=== PATIENT | male | born 1980 ===

== ENCOUNTER 2024-12-12 09:41 | Inpatient (IN) | payer OTHER ==
[~2024-12-12] VITALS: Ht 172.7 cm; Wt 87.2 kg
--- NOTE | 2024-12-12 10:24 | DVH ---
CHEST RADIOGRAPH Indication: sob Technique: Single frontal view of the chest was obtained COMPARISON: None FINDINGS: Lines and Tubes: None Lungs: Congestion Pleura: No effusion. No pneumothorax. Cardiomediastinal contours: Unremarkable Bones: Unremarkable IMPRESSION: Pulmonary vascular congestion
[2024-12-12] MEDS: ONDANSETRON HCL 4 MG/2 ML VIAL IV ONE (10:26)
[2024-12-12] MEDS: SODIUM CHLORIDE 0.9% 1,000 ML IV ONE (10:26)
[2024-12-12 10:29] VITALS: PULSE 122; RESP 20; O2SAT 98
[2024-12-12 10:56] LABS: Basophils # (auto) 0.1 10 ^3/uL (0-0.2); Basophils % (auto) 0.7 % (0.0-2.0); Eosinophils # (auto) 0.2 10 ^3/uL (0-0.8); Eosinophils % (auto) 1.9 % (0.0-7.0); Hematocrit 26.5 % (41.0-53.0); Hemoglobin 9.1 g/dL (13.5-17.5); Lymphocytes # (auto) 1.3 10 ^3/uL (0.4-5.4); Lymphocytes % (auto) 11.3 % (10.0-50.0); Mean Corpuscular Hemoglobin 28.5 pg (28.0-32.0); Mean Corpuscular Hgb Conc. 34.6 g/dL (32.0-36.0); Mean Corpuscular Volume 82.4 fL (80.0-100.0); Monocytes # (auto) 0.6 10 ^3/uL (0-1.3); Monocytes % (auto) 5.2 % (0.0-12.0); Neutrophils # (auto) 9.6 10 ^3/uL (1.6-8.6); Neutrophils % (auto) 80.9 % (37.0-80.0); Platelet Count (auto) 259 10^3/uL (140-450); Red Blood Cells 3.21 10^6/uL (4.5-5.90); Red Cell Distribution Width 14.2 % (11.8-14.3); White Blood Cell 11.9 10^3/uL (4.4-10.8)
[2024-12-12 11:27] LABS: COVID19 ANTIGEN SOFIA FIA NEGATIVE (NEGATIVE); Rapid Influenza A Negative (Negative); Rapid Influenza B Negative (Negative)
--- NOTE | 2024-12-12 11:50 | ED.PDOC ---
SOB-HPI HPI Comments 44 year old male presents to the ED with chief complaint of SOB. Patient reports that he has been experiencing SOB with associated cough, nausea, vomiting, sore throat, and headache for the past week. Patient denies any abdominal pain, chest pain, diarrhea, fever, chills, or dizziness. Chief Complaint: Shortness of Breath Time Seen by MD: 11:47 Primary Care Provider: none Reviewed notes: Nurses Notes, Medications, Allergies Information Source: Patient Mode of Arrival: Ambulatory Severity: Moderate Timing: Weeks Duration: Since onset Context: At Rest PE Risk Factors: None History of: None Prehospital treatment: None Modifying Factors: Nothing Associated Signs and Symptoms: Cough, Sore Throat If cough with SOB: Non-Productive Past Medical History PAST MEDICAL HISTORY: Denies Surgical History (Other): Cyst removal Family History Family History: Reviewed,noncontributory to illness Social History Smoker: Non-Smoker Alcohol: Denies ETOH Use Drugs: Marijuana Lives In: Home Constitutional: denies: chills, diaphoresis, fatigue, fever, malaise, sweats, weakness, others EENTM: reports: throat pain; denies: blurred vision, double vision, ear bleeding, ear discharge, ear drainage, ear pain, ear ringing, eye pain, eye redness, hearing loss, mouth pain, mouth swelling, nasal discharge, nose bleeding, nose congestion, nose pain, photophobia, tearing, throat swelling, voice changes, others Respiratory: reports: cough, shortness of breath; denies: hemoptysis, or thopnea, SOB at rest, SOB with excertion, stridor, wheezing, others Cardiovascular: denies: chest pain, dizzy spells, diaphoresis, Dyspnea on exertion, edema, irregular heart beat, left arm pain, lightheadedness, palpitations, PND, syncope, others Gastrointestinal: reports: nausea, vomiting; denies: abdomen distended, abdominal pain, blood streaked bowels, constipated, diarrhea, dysphagia, difficulty swallowing, hematemesis, melena, poor appetite, poor fluid intake, rectal bleeding, rectal pain, others Genitourinary: denies: burning, dysuria, flank pain, frequency, hematuria, incontinence, penile discharge, penile sore, pain, testicle pain, testicle sw elling, urgency, others Neurological: reports: headache; denies: dizziness, fainting, left sided numbness, left sided weakness, numbness, paresthesia, pre-existing deficit, right sided numbness, right sided weakness, seizure, speech problems, tingling, tremors, weakness, others Musculoskeletal: denies: back pain, gout, joint pain, joint swelling, muscle pain, muscle stiffness, neck pain, others Integumetry: denies: bruises, change in color, change in hair/nails, dryness, laceration, lesions, lumps, rash, wounds, others Allergic/Immunocompromised: denies: Difficulty Healing, Frequent Infections, Hives, Itching, others Hematologic/Lymphatic: denies: anemia, blood clots, easy bleeding, easy bruising, swollen glands, others Endocrine: denies: excessive hunger, excessive sweating, excessive thirst, excessive urination, flushing, intolerance to cold, intolerance to heat, unexplained weight gain, unexplained weight loss, others Psychiatric: denies: anxiety, bipolar disorder, depression, hopeless, panic disorder, schizophrenia, sleepless, suicidal, others All Other Systems: Reviewed and Negative Physical Exam General Appearance: No Apparent Distress, Normal HEENT: Normal ENT Inspection, PERRL/EOMI Neck: Full Range of Motion, Non-Tender, Normal, Normal Inspection Respiratory: Chest Non-Tender, Lungs Clear, No Accessory Muscle Use, No Respiratory Distress, Normal Breath Sounds Cardiovascular: No Edema, No JVD, No Murmur, No Gallop, Normal Peripheral Pulses, Regular Rate/Rhythm Breast Exam: Deferred Gastrointestinal: No Organomegaly, Non Tender, No Pulsatile Mass, Normal Bowel Sounds, Soft Genitalia: Deferred Pelvic: Deferred Rectal: Deferred Extremities: No calf tenderness, Normal capillary refill, Normal inspection, Normal range of motion, Non-tender, No pedal edema Musculoskeletal : Apperance: Normal Neurologic: Alert, stretcher helper II-XII nml as Tested, No Motor Deficits, Normal Affect, Normal Mood, No Sensory Deficits Cerebellar Function: Normal Reflexes: Normal Skin: Dry, Normal Color, Warm Lymphatic: No Adenopathy Was a procedure done? Was a procedure done?: No Differential Dx Differential Diagnosis: CHF, COPD, Myocardial infarction, Pneumonia, Respiratory Distress, Sinusitis, Pharyngitis, URI X-Ray, Labs, Meds, VS Vital Signs Date Time Temp Pulse Resp B/P (MAP) Pulse Ox O2 Delivery O2 Flow Rate FiO2 2/10/25 13:33 115 16 199/114 (142) 98 12/12/24 12:08 225/156 12/12/24 11:52 120 12/12/24 11:38 117 19 97 Room Air 12/12/24 11:38 98.0 117 19 231/152 (178) 97 98.0 12/12/24 10:50 98.4 116 16 236/156 (182) 98 98.4 12/12/24 10:29 122 20 98 Room Air* 0 21 12/12/24 10:12 106 12/12/24 10:08 20 98 Room Air* 0 21 12/12/24 10:04 98.4 122 20 246/159 (188) 98 Lab Test 12/12/24 13:59 12/12/24 11:45 12/12/24 10:31 12/12/24 10:30 Range/Units Troponin I High Sensitivity 306 *H 311 *H 309 *H </=54 ng/L Influenza Type A Antigen Negative Negative Influenza Type B Antigen Negative Negative SARS-CoV-2 Antigen (Rapid) Negative NEGATIVE White Blood Count 11.9 H 4.4-10.8 10^3/uL Red Blood Count 3.21 L 4.5-5.90 10^6/uL Hemoglobin 9.1 L 13.5-17.5 g/dL Hematocrit 26.5 L 41.0-53.0 % Mean Corpuscular Volume 82.4 80.0-100.0 fL Mean Corpuscular Hemoglobin 28.5 28.0-32.0 pg Mean Corpuscular Hemoglobin Concent 34.6 32.0-36.0 g/dL Red Cell Distribution Width 14.2 11.8-14.3 % Platelet Count 259 140-450 10^3/uL Mean Platelet Volume 8.9 6.9-10.8 fL Neutrophils (%) (Auto) 80.9 H 37.0-80.0 % Lymphocytes (%) (Auto) 11.3 10.0-50.0 % Monocytes (%) (Auto) 5.2 0.0-12.0 % Eosinophils (%) (Auto) 1.9 0.0-7.0 % Basophils (%) (Auto) 0.7 0.0-2.0 % Neutrophils # (Auto) 9.6 H 1.6-8.6 10 ^3/uL Lymphocytes # (Auto) 1.3 0.4-5.4 10 ^3/uL Monocytes # (Auto) 0.6 0-1.3 10 ^3/uL Eosinophils # (Auto) 0.2 0-0.8 10 ^3/uL Basophils # (Auto) 0.1 0-0.2 10 ^3/uL Nucleated Red Blood Cells 0.0 % Sodium Level 139 136-145 mmol/L Potassium Level 2.7 L 3.5-5.1 mmol/L Chloride Level 107 98-107 mmol/L Carbon Dioxide Level 16 L 20-31 mmol/L Anion Gap 16 H 5-15 Blood Urea Nitrogen 90 *H 9-23 mg/dL Creatinine 8.50 H 0.700-1.30 mg/dL Glomerular Filtration Rate Calc 7 >90 mL/min BUN/Creatinine Ratio 10.6 10.0-20.0 Serum Glucose 136 H 74-106 mg/dL Calcium Level 8.5 L 8.7-10.4 mg/dL Current Medications Medications (Trade) Dose Ordered Sig/Lcara Route Start Time Stop Time Status Last Admin Sodium Chloride 1,000 ml @ 1,000 mls/hr Q1H ONCE IV 12/12/24 10:15 12/12/24 11:14 DC 12/12/24 10:26 Ondansetron HCl (Zofran) 4 mg ONCE ONCE IV 12/12/24 10:15 12/12/24 10:16 DC 12/12/24 10:26 Hydralazine HCl (Apresoline Injection) 20 mg ONCE ONCE IV 12/12/24 12:00 12/12/24 12:02 DC 12/12/24 12:08 Time of 1ST Reevaluation: 12:47 Reevaluation 1ST: Unchanged Patient Education/Counseling: Diagnosis, Treatment Family Education/Counseling: No Family Present Additional Information I reviewed the following notes from patient's past medical encounters: None The following tests were ordered, and results were reviewed by me: CXR, Troponin, EKG, CBC, BMP, COVID-19, Influenza I reviewed and agreed with the following test results read by other providers: CXR Additional Information was gathered from interviewing the following independent historians: None I discussed treatment and results with medical personnel. Departure 1 Departure Time of Disposition: 16:42 (Patient presented with hypertension and symptoms concerning for hypertensive emergency. Patient is receiving iv blood pressure medications requiring intensive monitoring. Data: 1. I ordered and reviewed the result of at least 3 labs including a CBC, BMP, and Urinalysis. 2. I independently interpreted the following tests: CT Brain: Which appears benign. EKG which is Normal Sinus RhythmRisk:This patient has a high risk of morbidity due to further diagnostic testing or treatment and may suffer from an acute cardiac disorder. Workup reveals hypertensive emergency and patient should be admitted for further workup. and possible expert consultation. Patient with new onset renal failure. We will admit patient for further workup) Impression: Primary Impression: Acute renal failure Qualified Codes: N17.9 - Acute kidney failure, unspecified Additional Impressions: Shortness of breath Generalized weakness Disposition: ADMITTED INPATIENT Admit to: Med Surg Condition: Guarded Critical Care Note Critical Care Time?: Yes Critical care comment: Acute renal failure Authorized and Performed by: Roly Mroales MD Total critical care time: Approximately 39 minutes Due to a high probability of clinically significant, life threatening deterioration, the patient required my highest level of preparedness to intervene emergently and I personally spent this critical care time directly and personally managing the patient. This critical care time included obtaining a history; examining the patient; pulse oximetry; ordering and review of studies; arranging urgent treatment with development of a management plan; evaluation of patient's response to treatment; frequent reassessment; and, discussions with other providers. This critical care time was performed to assess and manage the high probability of imminent, life-threatening deterioration that could result in multi-organ failure. It was exclusive of separately billable procedures and treating other patients and teaching time. Please see my other sections and the rest of the note for further information on patient assessment and treatment. Stability Stability form required: No Heart Score Heart Score: Heart Score Response (Comments) Value History N/A 0 EKG N/A 0 Age N/A 0 Risk Factors N/A 0 Troponin N/A 0 Total 0 I personally scribed for ROLY MORALES MD ([email or web address]) on 12/12/24 at 11:50. Electronically submitted by Lee Rodriguez ([email or web address]). ROLY MORALES MD Dec 12, 2024 11:50
[2024-12-12] MEDS: hydrALAZINE HCL 20 MG/ML VL IV ONE (12:08)
[2024-12-12 12:25] LABS: Anion Gap 16 (5-15)
[2024-12-12 12:29] LABS: Calcium 8.5 mg/dL (8.7-10.4); Carbon Dioxide 16 mmol/L (20-31); Chloride 107 mmol/L (98-107); Potassium 2.7 mmol/L (3.5-5.1); Sodium 139 mmol/L (136-145)
[2024-12-12 12:30] LABS: BUN/Creatinine Ratio 10.6 (10.0-20.0)
[2024-12-12 12:31] LABS: Glucose 136 mg/dL (74-106)
[2024-12-12 12:32] LABS: Blood Urea Nitrogen 90 mg/dL (9-23)
[2024-12-12] MEDS ORDERED: NITROGLYCERIN 0.4 MG SL TAB SL PRN (19:15)
[2024-12-12] MEDS ORDERED: MORPHINE SULFATE INJ 2 MG/ml SYRG IV PRN (19:15)
[2024-12-12] MEDS ORDERED: ONDANSETRON HCL 4 MG/2 ML VIAL IV PRN (19:45)
[2024-12-12] MEDS ORDERED: ACETAMINOPHEN 325 MG TAB PO PRN (19:45)
--- NOTE | 2024-12-12 19:57 | DVH ---
CT STROKE CTH INDICATION: hyprtension, headache COMPARISON: None TECHNIQUE: CT of the head without intravenous contrast. RADIATION DOSE: CTDIvol: mGy, DLP: mGy*cm FINDINGS: There is no evidence of intracranial hemorrhage, acute infarct, extra-axial collection, mass effect, midline shift, herniation or hydrocephalus. There is old right PICA territory cerebellar infarct as w ell as small old infarcts in bilateral thalamus larger on the right side and left posterior and left frontal periventricular white matter. The ventricles, sulci and cisterns are normal. Visualized paranasal sinuses and mastoid air cells are clear. The surrounding soft tissues and osseo us structures are unremarkable. IMPRESSION: No acute intracranial abnormality identified. 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
[2024-12-12 20:00] VITALS: O2SAT 94
[2024-12-12] MEDS: LABETALOL HCL 20 MG/4 ML VL IV ONE (20:19)
[2024-12-12] MEDS: POTASSIUM CHL 20 Meq TABLET PO ONE (20:19)
--- NOTE | 2024-12-12 20:41 | DVH ---
EXAM: US KIDNEY INDICATION: renal failure TECHNIQUE: Multiple real-time sonographic images of the kidneys and bladder were obtained. COMPARISON: None Findings: Right kidney measures 10.0 cm with normal contours, increased echotexture, and normal cortical thickn ess. No evidence of hydronephrosis, calculi, cystic or solid lesions. Left kidney measures 9.8 cm with normal contours, increasead echotexture, and normal cortical thickne ss. 0.8 x 1.1 x 0.8 cm anechoic lesion. No evidence of hydronephrosis, calculi, or solid lesions. Urinary bladder is contracted. Bilateral pleural effusions. Impression: 1. Increased echogenicity of bilateral kidneys. Correlate for medical renal disease. 2. Left renal cyst. 3. Urinary bladder is contracted. 4. Bilateral pleural effusions.
[2024-12-12 21:20] LABS: Triglycerides 176 mg/dL (< 150)
[2024-12-12 21:21] LABS: LDL Cholesterol 117 mg/dL (< 100)
[2024-12-12 21:22] LABS: Cholesterol 193 mg/dL (< 200); HDL Cholesterol 51 mg/dL (40-59)
[2024-12-12] MEDS ORDERED: FUROSEMIDE 100 MG/10ML VIAL IV ONE (21:30)
[2024-12-12] MEDS: ATORVASTATIN 20 MG TAB PO SCH (21:39)
[2024-12-12] MEDS: METOPROLOL TARTRATE 25 MG TAB PO SCH (21:40)
[2024-12-12] MEDS: ENOXAPARIN SOD 100 MG/1 ML SYRINGE SC ONE (21:40)
--- NOTE | 2024-12-12 22:19 | DVHHP2 ---
History of Present Illness Reason for Visit: Shortness for breath History of Present Illness 44-year-old male presents for evaluation of shortness for breath. Patient presents with worsening shortness for breath has been ongoing for the past two weeks. He states symptoms become worse when laying flat. He also reports mild chest tightness. No cough or fever. Patient reports having history of hypertension yet he has been off his medications for the past three years. Denies any other acute complaints at the moment. Past Medical History Denies Past Surgical History Cyst removal Family History Noncontributory Smoke: No ALCOHOL: none Drugs: None Lives: with Family Review of Systems Review of Systems Review of systems are currently negative otherwise addressed in HPI. Allergies: Coded Allergies: NO KNOWN ALLERGIES (Unverified , 12/12/24) Medications Current Medications Medications Dose Ordered Sig/Clara Route Start Time Stop Time Status Last Admin Dose Admin Nitroglycerin 0.4 mg Q5MINP PRN SL 12/12/24 19:15 Morphine Sulfate 2 mg Q30M PRN IV 12/12/24 19:15 Aspirin 162 mg DAILY PO 12/13/24 10:00 Atorvastatin Calcium 10 mg HS PO 12/12/24 22:00 12/12/24 21:39 10 MG Metoprolol Tartrate 25 mg BID PO 12/12/24 22:00 12/12/24 21:40 25 MG Amlodipine Besylate 10 mg DAILY PO 12/13/24 10:00 Temazepam 15 mg QHSP PRN PO 12/12/24 19:45 Ondansetron HCl 4 mg Q4HP PRN IV 12/12/24 19:45 Acetaminophen 650 mg Q6HP PRN PO 12/12/24 19:45 Furosemide 20 mg BIDD IV 12/13/24 06:00 Exam Vital Signs Vital Signs Date Time Temp Pulse Resp B/P (MAP) Pulse Ox O2 Delivery O2 Flow Rate FiO2 12/12/24 21:40 107 159/110 12/12/24 18:00 98.2 15 97 98.2 12/12/24 11:38 Room Air 12/12/24 10:29 0 21 Exam Gen: 44-year-old male in mild distress Skin: Warm, dry, normal color and texture, no rash. HEENT: Normocephalic atraumatic, mucous membranes moist and pink. Neck: Cervical and supraclavicular nodes normal without enlargement, trachea is midline, thyroid gland is normal without masses. Pulmonary: Clear to auscultation and percussion bilaterally. Cardiac: Regular rate and rhythm. No murmur Abdomen: Soft, nontender, nondistended, bowel sounds present all 4 quadrants, no guarding, no rigidity, no organomegaly. Extremities: No cyanosis, clubbing, no edema Neuro: Cranial nerves II through XII grossly intact, normal affect and speech, no focal motor deficits. Labs/Xrays ORDERING PHYSICIAN: ROLY CRAIG MD PROCEDURE(s): CXRP - CHEST PORTABLE REASON: sob ORDER NUMBER(s): [id number], ACCESSION NUMBER(s): [id number] CHEST RADIOGRAPH Indication: sob Technique: Single frontal view of the chest was obtained COMPARISON: None FINDINGS: Lines and Tubes: None Lungs: Congestion Pleura: No effusion. No pneumothorax. Cardiomediastinal contours: Unremarkable Bones: Unremarkable IMPRESSION: Pulmonary vascular congestion RING PHYSICIAN: FABIO BRANDT PROCEDURE(s): KIDUS - KIDNEY REASON: renal failure ORDER NUMBER(s): [id number], ACCESSION NUMBER(s): [id number] EXAM: US KIDNEY INDICATION: renal failure TECHNIQUE: Multiple real-time sonographic images of the kidneys and bladder were obtained. COMPARISON: None Findings: Right kidney measures 10.0 cm with normal contours, increased echotexture, and normal cortical thickness. No evidence of hydronephrosis, calculi, cystic or solid lesions. Left kidney measures 9.8 cm with normal contours, increasead echotexture, and normal cortical thickness. 0.8 x 1.1 x 0.8 cm anechoic lesion. No evidence of hydronephrosis, calculi, or solid lesions. Urinary bladder is contracted. Bilateral pleural effusions. Impression: 1. Increased echogenicity of bilateral kidneys. Correlate for medical renal disease. 2. Left renal cyst. 3. Urinary bladder is contracted. 4. Bilateral pleural effusions. ATED BY: FERNANDA ZUÑIGA DO ORDERING PHYSICIAN: FABIO BRANDT PROCEDURE(s): CTH - STROKE CTH REASON: hyprtension, headache ORDER NUMBER(s): [id number], ACCESSION NUMBER(s): [id number] CT STROKE CTH INDICATION: hyprtension, headache COMPARISON: None TECHNIQUE: CT of the head without intravenous contrast. RADIATION DOSE: CTDIvol: mGy, DLP: mGy*cm FINDINGS: There is no evidence of intracranial hemorrhage, acute infarct, extra-axial collection, mass effect, midline shift, herniation or hydrocephalus. There is old right PICA territory cerebellar infarct as well as small old infarcts in bilateral thalamus larger on the right side and left posterior and left frontal periventricular white matter. The ventricles, sulci and cisterns are normal. Visualized paranasal sinuses and mastoid air cells are clear. The surrounding soft tissues and osseous structures are unremarkable. IMPRESSION: No acute intracranial abnormality identified. 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 Labs Test 12/12/24 21:54 12/12/24 20:37 12/12/24 13:59 12/12/24 10:31 Range/Units D-Dimer, Quantitative 0.92 H 0.0-0.49 mg/L FEU Troponin I High Sensitivity 306 *H </=54 ng/L Influenza Type A Antigen Negative Negative Influenza Type B Antigen Negative Negative SARS-CoV-2 Antigen (Rapid) Negative NEGATIVE Test 12/12/24 10:30 Range/Units White Blood Count 11.9 H 4.4-10.8 10^3/uL Red Blood Count 3.21 L 4.5-5.90 10^6/uL Hemoglobin 9.1 L 13.5-17.5 g/dL Hematocrit 26.5 L 41.0-53.0 % Mean Corpuscular Volume 82.4 80.0-100.0 fL Mean Corpuscular Hemoglobin 28.5 28.0-32.0 pg Mean Corpuscular Hemoglobin Concent 34.6 32.0-36.0 g/dL Red Cell Distribution Width 14.2 11.8-14.3 % Platelet Count 259 140-450 10^3/uL Mean Platelet Volume 8.9 6.9-10.8 fL Neutrophils (%) (Auto) 80.9 H 37.0-80.0 % Lymphocytes (%) (Auto) 11.3 10.0-50.0 % Monocytes (%) (Auto) 5.2 0.0-12.0 % Eosinophils (%) (Auto) 1.9 0.0-7.0 % Basophils (%) (Auto) 0.7 0.0-2.0 % Neutrophils # (Auto) 9.6 H 1.6-8.6 10 ^3/uL Lymphocytes # (Auto) 1.3 0.4-5.4 10 ^3/uL Monocytes # (Auto) 0.6 0-1.3 10 ^3/uL Eosinophils # (Auto) 0.2 0-0.8 10 ^3/uL Basophils # (Auto) 0.1 0-0.2 10 ^3/uL Nucleated Red Blood Cells 0.0 % Sodium Level 139 136-145 mmol/L Potassium Level 2.7 L 3.5-5.1 mmol/L Chloride Level 107 98-107 mmol/L Carbon Dioxide Level 16 L 20-31 mmol/L Anion Gap 16 H 5-15 Blood Urea Nitrogen 90 *H 9-23 mg/dL Creatinine 8.50 H 0.700-1.30 mg/dL Glomerular Filtration Rate Calc 7 >90 mL/min BUN/Creatinine Ratio 10.6 10.0-20.0 Serum Glucose 136 H 74-106 mg/dL Hemoglobin A1c 4.9 <5.7 % A1C Calcium Level 8.5 L 8.7-10.4 mg/dL B-Type Natriuretic Peptide 1132.68 0-100 pg/mL Triglycerides Level 176 H < 150 mg/dL Cholesterol Level 193 < 200 mg/dL LDL Cholesterol 117 H < 100 mg/dL HDL Cholesterol 51 40-59 mg/dL Thyroid Stimulating Hormone (TSH) 0.37 L 0.55-4.78 uIU/mL Assessment/Plan Assessment/Plan Assessment Hypertensive urgency Acute congestive heart failure Elevated troponin rule out NSTEMI versus demand ischemia 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 Plan discussed with: Patient My Orders Orders - FABIO BRANDT Procedure Category Date Status Time Admit ADMIT 12/12/24 Transmitted 19:10 Nitroglycerin PHA 12/12/24 In Process Sublingual (Ntrostat 19:15 Morphine Sulfate PHA 12/12/24 In Process Injection 19:15 Stat Ekg For Chest VICENTE 12/12/24 In Process Pain 19:10 Notify Of Changes VICENTE 12/12/24 In Process From Base 19:10 Package Winder For VICENTE 12/12/24 In Process 24 Hours 19:10 Emergency Dysrhythmia VICENTE 12/12/24 In Process Protocol 19:10 Rhythm Strips Once VICENTE 12/12/24 In Process Every Shift 19:10 Oxygen By Nasal RT 12/12/24 Transmitted Cannula 19:[address] 12/12/24 Resulted 19:10 Kidney US 12/12/24 Resulted 19:37 * Cardiology Consult CONS 12/12/24 Transmitted 19:37 Aspirin Tablet PHA 12/13/24 In Process 10:00 Atorvastatin (Lipitor) PHA 12/12/24 In Process 22:00 Metoprolol Tartrate PHA 12/12/24 In Process Tablet (Lopressor Ta 22:00 Amlodipine Tablet PHA 12/13/24 In Process (Norvasc Tablet) 10:00 Temazepam (Restoril) PHA 12/12/24 In Process 19:45 Ondansetron Hcl PHA 12/12/24 In Process (Zofran) 19:45 Complete Blood Count LAB 12/13/24 Verified 04:00 Comprehensive LAB 12/13/24 Verified Metabolic Panel 04:00 Cardiac DIET 12/13/24 Transmitted Diet-2gna,Lofat,Lochol Breakfast Echo 2d Mode Cardiac US 12/12/24 Logged DOP 19:37 Condition: Fair VICENTE 12/12/24 In Process 19:37 Acetaminophen Tablet PHA 12/12/24 In Process (Tylenol Tablet) 19:45 Bedrest With Bathroom VICENTE 12/12/24 In Process Privileg 19:37 Thyroid Panel LAB 12/12/24 In Process 21:24 Furosemide Injection PHA 12/13/24 In Process (Lasix Injection) 06:00 Date of Service: Dec 12, 2024 Billing Provider: FABIO BRANDT Common Visit Codes: [id number] INP/OBS CARE (HIGH) FABIO BRANDT Dec 12, 2024 22:19
[2024-12-12] MEDS: FUROSEMIDE 40 MG/4 ML VIAL IV ONE (23:51)
--- NOTE | 2024-12-13 01:36 | ECG ---
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
[2024-12-13] MEDS: LABETALOL HCL 20 MG/4 ML VL IV ONE (02:13)
[2024-12-13] MEDS: hydrALAZINE HCL 20 MG/ML VL IV PRN (05:03)
[2024-12-13 05:55] LABS: Basophils # (auto) 0.1 10 ^3/uL (0-0.2); Lymphocytes # (auto) 1.2 10 ^3/uL (0.4-5.4); Mean Corpuscular Hemoglobin 28.3 pg (28.0-32.0); Neutrophils # (auto) 9.9 10 ^3/uL (1.6-8.6); Red Blood Cells 2.95 10^6/uL (4.5-5.90)
[2024-12-13 05:57] LABS: Basophils % (auto) 0.8 % (0.0-2.0); Eosinophils # (auto) 0.2 10 ^3/uL (0-0.8); Eosinophils % (auto) 1.3 % (0.0-7.0); Hematocrit 24.3 % (41.0-53.0); Hemoglobin 8.3 g/dL (13.5-17.5); Lymphocytes % (auto) 9.9 % (10.0-50.0); Mean Corpuscular Hgb Conc. 34.4 g/dL (32.0-36.0); Mean Corpuscular Volume 82.3 fL (80.0-100.0); Monocytes # (auto) 0.7 10 ^3/uL (0-1.3); Monocytes % (auto) 5.6 % (0.0-12.0); Neutrophils % (auto) 82.4 % (37.0-80.0); Platelet Count (auto) 238 10^3/uL (140-450); Red Cell Distribution Width 14.5 % (11.8-14.3)
[2024-12-13 06:09] LABS: Alanine Aminotransferase 35 U/L (7-40); Albumin 3.8 g/dL (3.2-4.8); Alkaline Phosphatase 67 U/L (46-116); Anion Gap 16 (5-15); Aspartate Aminotransferase 31 U/L (13-40); BUN/Creatinine Ratio 10.7 (10.0-20.0); Calcium 9.4 mg/dL (8.7-10.4); Glucose 104 mg/dL (74-106); Sodium 138 mmol/L (136-145)
[2024-12-13 06:10] LABS: Bilirubin, Total 0.3 mg/dL (0.2-1.0); Total Protein 6.1 g/dL (5.7-8.2)
[2024-12-13] MEDS: FUROSEMIDE 20 MG/2 ML VIAL IV SCH (06:10)
[2024-12-13 06:50] LABS: Carbon Dioxide 15 mmol/L (20-31); Chloride 107 mmol/L (98-107); Potassium 3.2 mmol/L (3.5-5.1)
[2024-12-13 06:52] LABS: Blood Urea Nitrogen 87 mg/dL (9-23)
[2024-12-13] MEDS ORDERED: dilTIAZem 125mg/125ml BAG KIT 125 ML IV SCH (08:45)
[2024-12-13] MEDS ORDERED: CARVEDILOL 3.125 MG TAB PO ONE (09:15)
--- NOTE | 2024-12-13 09:25 | DVHPNRES ---
Progress Note Date Seen: Dec 13, 2024 Resident Creating Document: NORMAN CHAO RESIDENT Medical Necessity Reason Pt with a Central, PICC or Fol: No Subjective Review of Systems This is a 44-year-old male patient with PMH of hypertension on no medications, history of cocaine use, presented to the ER with a chief complaint of shortness of breaths for the past 2-3 weeks, associated with orthopnea, PND. Also associated with dry cough for the past 3 weeks. Denies chest pain/palpitations. He smokes marijuana daily, this cocaine for the past 5 years quit 2023, drinks occasionally. Has not seen a physician in years, has no PCP. EKG completed shows LVH criteria. Sinus tachycardia. Patient seen and examined at the bedside. Objective vital signs Vital Sign Date Time Temp Pulse Resp B/P (MAP) Pulse Ox O2 Delivery O2 Flow Rate FiO2 12/13/24 09:10 114 182/116 12/13/24 07:29 20 98 12/12/24 20:00 Room Air* 0 21 12/12/24 18:00 98.2 98.2 Total Intake and Output 12/12/24 12/12/24 12/13/24 15:00 23:00 07:00 Intake Total 1000 ml Balance 1000 ml medications Current Medications Medications Dose Ordered Sig/Clara Route Start Time Stop Time Status Last Admin Dose Admin Nitroglycerin 0.4 mg Q5MINP PRN SL 12/12/24 19:15 Morphine Sulfate 2 mg Q30M PRN IV 12/12/24 19:15 Aspirin 162 mg DAILY PO 12/13/24 10:00 Atorvastatin Calcium 10 mg HS PO 12/12/24 22:00 12/12/24 21:39 10 MG Temazepam 15 mg QHSP PRN PO 12/12/24 19:45 Ondansetron HCl 4 mg Q4HP PRN IV 12/12/24 19:45 Acetaminophen 650 mg Q6HP PRN PO 12/12/24 19:45 Nicardipine HCl 250 ml @ 50 mls/hr Q5H IV 12/13/24 09:00 12/13/24 09:10 50 MLS/HR Examination Patient lying in bed in the ER, no acute distress General: Well-built, afebrile, palor, mucosae are moist Cardiovascular: Regular S1 and S2. No murmurs, gallops or rubs. No JVD elevation. No pedal edema Respiratory: Bilateral crackles heard on auscultation. On room air. Abdomen: Soft, nontender, nondistended, normoactive bowel sounds, no rebound tenderness, no organomegaly, no masses Genitourinary: Deferred MSK/skin: Mobilizes 4 limbs. Skin is dry and warm Neurological: No motor, no sensitive deficits, normal speech. Pupils are isocoric and reactive. Psych/Mental Status: A/Ox3 laboratory and microbiology Laboratory Tests 12/13/24 05:25 Test 12/13/24 05:25 Range/Units Serum Glucose 104 74-106 mg/dL Labs and/or images reviewed: Labs reviewed by me, Image(s) reviewed by me Problem List/Assessment/Plan Problem List/Assessment/Plan Sirs secondary to Hypertensive emergency Systolic congestive heart failure exacerbation - newly diagnosed NSTEMI, likely type 2 Severe MR History of cocaine use TTE performed, EF 50% with severe MR. Coordinate with RONEN BNP [address] Started nicardipine drip, target SBP between 140 and 150 Nephrology started labetalol 400 mg p.o. q.12 Continue aspirin daily Furosemide 40 mg IV b.i.d. Acute renal failure Secondary hyperparathyroidism Left Renal cyst Renal ultrasound completed, shows Increased echogenicity of bilateral kidneys. Correlate for medical renal disease. Nephrology on board Hyperlipidemia Continue atorvastatin 40 mg daily Anemia, likely microcytic+ Pending stool occult Euthyroid sick syndrome Monitor Hypokalemia Replenish Vitamin-D deficiency Replenish Plan discussed with patient in which all questions have been answered Case discussed With Dr. Vazquez Plan discussed with: Patient My Orders My Orders Orders - NORMAN CHAO RESIDENT Procedure Category Date Status Time *Dr. [facility] CONS 12/13/24 Transmitted -[place] 07:55 Urinalysis LAB 12/13/24 Logged 08:06 Vitamin B12 LAB 12/13/24 In Process 08:06 Vitamin D, 25-Hydroxy LAB 12/13/24 In Process 08:06 Drug Screen LAB 12/13/24 Logged 08:06 Stool Occult Blood LAB 12/13/24 Logged 08:06 Urine LAB 12/13/24 Logged Protein/Creatinine Urine Sodium LAB 12/13/24 Logged 08:11 Parathyroid Hormone LAB 12/13/24 In Process Intact 08:11 Nitroglycerin Drip PHA 12/13/24 Transmitted [place] 09:30 Date of Service: Dec 13, 2024 Billing Provider: ITALO POPE MD Common Visit Codes: [id number] INP/OBS CARE(HIGH) NORMAN CHAO RESIDENT Dec 13, 2024 09:24 ITALO POPE MD Dec 18, 2024 23:59
[2024-12-13] MEDS ORDERED: amLODIPine BESYLATE 5 MG TAB PO SCH (10:00)
[2024-12-13] MEDS: ASPirin 81 mg TAB PO SCH (10:11)
[2024-12-13] MEDS: POTASSIUM CHL 20MEQ/100ML 100 ML IV ONE (10:11)
[2024-12-13] MEDS: NITROGLYCERIN 50MG/250ML 250 ML IV SCH (10:12)
--- NOTE | 2024-12-13 11:28 | DVHINCON2 ---
Date of service: Dec 13, [address] Rodriguez Reason for Consultation Acute kidney injury History of Present Illness Patient is a 44-year-old male with past medical history of hypertension for the past five years, patient noncompliant with medication presented with worsening shortness of breath and chest pain. On admission patient found to have elevated BUN and creatinine nephrology is consulted for acute kidney injury Past Medical History Hypertension is on no medication Family history father with diabetes, mother from complication of diabetes and kidney failure Past Surgical History Patient denies Allergies: Coded Allergies: NO KNOWN ALLERGIES (Unverified , 12/12/24) Current Medications Current Medications Medications (Trade) Dose Ordered Sig/Clara Route PRN Reason Start Time Stop Time Status Last Admin Nitroglycerin (Ntrostat Sublingual) 0.4 mg Q5MINP PRN SL FOR CHEST PAIN 12/12/24 19:15 Morphine Sulfate 2 mg Q30M PRN IV FOR CHEST PAIN 12/12/24 19:15 Aspirin 162 mg DAILY PO 12/13/24 10:00 12/13/24 10:11 Atorvastatin Calcium (Lipitor) 10 mg HS PO 12/12/24 22:00 12/12/24 21:39 Metoprolol Tartrate (Lopressor Tablet) 25 mg BID PO 12/12/24 22:00 12/13/24 08:10 DC 12/12/24 21:40 Amlodipine Besylate (Norvasc Tablet) 10 mg DAILY PO 12/13/24 10:00 12/13/24 09:16 DC Temazepam (Restoril) 15 mg QHSP PRN PO FOR INSOMNIA 12/12/24 19:45 Ondansetron HCl (Zofran) 4 mg Q4HP PRN IV NAUSEA / VOMITING 12/12/24 19:45 Acetaminophen (Tylenol Tablet) 650 mg Q6HP PRN PO PAIN SCALE 1-3 OR TEMP>100.4 12/12/24 19:45 Furosemide (Lasix Injection) 20 mg BIDD IV 12/13/24 06:00 12/13/24 08:11 DC 12/13/24 06:10 Hydralazine HCl (Apresoline Injection) 10 mg Q6HP PRN IV SBP>150 12/13/24 04:30 12/13/24 08:10 DC 12/13/24 05:03 Diltiazem HCl 125 ml @ 5 mls/hr Q24H IV 12/13/24 08:45 12/13/24 08:56 DC Nicardipine HCl 250 ml @ 50 mls/hr Q5H IV 12/13/24 09:00 12/13/24 09:24 DC 12/13/24 09:10 Nitroglycerin 250 ml @ 1.5 mls/hr Q24H IV 12/13/24 09:30 12/13/24 12:19 DC 12/13/24 10:12 Potassium Chloride 100 ml @ 50 mls/hr Q2H IV 12/13/24 11:30 12/13/24 15:29 12/13/24 13:30 Nicardipine HCl 250 ml @ 50 mls/hr Q5H IV 12/13/24 14:00 12/13/24 14:15 Furosemide (Lasix Injection) 40 mg BIDD IV 12/13/24 14:00 12/13/24 14:15 Review of Systems All 12 item review of systems reviewed with the patient nonsignificant except what is mentioned in the history of present illness H&P Exam Vital Signs/I&O Vital Sign Date Time Temp Pulse Resp B/P (MAP) Pulse Ox O2 Delivery O2 Flow Rate FiO2 12/13/24 14:45 113 19 195/132 (153) 96 12/13/24 13:30 Nasal Cannula* 2 28 12/12/24 18:00 98.2 98.2 Intake and Output 12/12/24 12/13/24 19:00 07:00 Intake Total 1000 ml Balance 1000 ml Intake IV Total 1000 ml Physical Exam Patient is awake alert appeared in no acute distress Lungs clear to auscultation bilaterally Cardiac exam regular rate and rhythm GI soft nontender is normal Extremities no clubbing cyanosis or edema Neuro nonfocal Labs/Diagnostic Data Labs/Diagnostic Data Laboratory Tests Test 12/13/24 14:26 12/13/24 12:00 12/13/24 10:45 12/13/24 08:49 Range/Units Sodium Level 137 136-145 mmol/L Potassium Level 3.3 L 3.5-5.1 mmol/L Chloride Level 106 98-107 mmol/L Carbon Dioxide Level 18 L 20-31 mmol/L Anion Gap 13 5-15 Blood Urea Nitrogen 91 *H 9-23 mg/dL Creatinine 8.04 H 0.700-1.30 mg/dL Glomerular Filtration Rate Calc 8 >90 mL/min BUN/Creatinine Ratio 11.3 10.0-20.0 Serum Glucose 132 H 74-106 mg/dL Uric Acid 7.7 3.7-9.2 mg/dL Calcium Level 9.2 8.7-10.4 mg/dL Magnesium Level 1.7 1.6-2.6 mg/dL Creatine Kinase 49 46-171 U/L Parathyroid Hormone (Intact) 650.2 H 18.4-80.1 pg/mL Hepatitis B Surface Antigen Negative Negative Hepatitis C Antibody Negative Negative HIV (1&2) Antibody Negative Negative Urine Color Colorless Yellow Urine Clarity Clear Clear Urine pH 5.5 5.0-9.0 Urine Specific [place] 1.008 1.001-1.035 Urine Protein 1+ H Negative Urine Ketones Negative Negative Urine Blood Trace H Negative /uL Urine Nitrite Negative Negative Urine Bilirubin Negative Negative Urine Urobilinogen Normal Negative mg/dL Urine Leukocyte Esterase Negative Negative /uL Urine RBC 1 0 - 3 /hpf Urine Microscopic WBC < 1 0-3 /HPF Urine Squamous Epithelial Cells None seen <5 /hpf Urine Bacteria None seen None Seen /hpf Urine Glucose Normal Normal mg/dL POC Glucose 109 H 70-106 mg/dl Test 12/13/24 05:25 12/12/24 21:54 12/12/24 20:37 12/12/24 13:59 Range/Units White Blood Count 12.0 H 4.4-10.8 10^3/uL Red Blood Count 2.95 L 4.5-5.90 10^6/uL Hemoglobin 8.3 L 13.5-17.5 g/dL Hematocrit 24.3 L 41.0-53.0 % Mean Corpuscular Volume 82.3 80.0-100.0 fL Mean Corpuscular Hemoglobin 28.3 28.0-32.0 pg Mean Corpuscular Hemoglobin Concent 34.4 32.0-36.0 g/dL Red Cell Distribution Width 14.5 H 11.8-14.3 % Platelet Count 238 140-450 10^3/uL Mean Platelet Volume 9.1 6.9-10.8 fL Neutrophils (%) (Auto) 82.4 H 37.0-80.0 % Lymphocytes (%) (Auto) 9.9 L 10.0-50.0 % Monocytes (%) (Auto) 5.6 0.0-12.0 % Eosinophils (%) (Auto) 1.3 0.0-7.0 % Basophils (%) (Auto) 0.8 0.0-2.0 % Neutrophils # (Auto) 9.9 H 1.6-8.6 10 ^3/uL Lymphocytes # (Auto) 1.2 0.4-5.4 10 ^3/uL Monocytes # (Auto) 0.7 0-1.3 10 ^3/uL Eosinophils # (Auto) 0.2 0-0.8 10 ^3/uL Basophils # (Auto) 0.1 0-0.2 10 ^3/uL Nucleated Red Blood Cells 0.0 % Sodium Level 138 136-145 mmol/L Potassium Level 3.2 L 3.5-5.1 mmol/L Chloride Level 107 98-107 mmol/L Carbon Dioxide Level 15 L 20-31 mmol/L Anion Gap 16 H 5-15 Blood Urea Nitrogen 87 *H 9-23 mg/dL Creatinine 8.16 H 0.700-1.30 mg/dL Glomerular Filtration Rate Calc 8 >90 mL/min BUN/Creatinine Ratio 10.7 10.0-20.0 Serum Glucose 104 74-106 mg/dL Calcium Level 9.4 8.7-10.4 mg/dL Magnesium Level 1.7 1.6-2.6 mg/dL Total Bilirubin 0.3 0.2-1.0 mg/dL Aspartate Amino Transferase (AST) 31 13-40 U/L Alanine Aminotransferase (ALT) 35 7-40 U/L Alkaline Phosphatase 67 46-116 U/L Total Protein 6.1 5.7-8.2 g/dL Albumin 3.8 3.2-4.8 g/dL Vitamin B12 Level 548 211-911 pg/mL Vitamin D 25-Hydroxy 10.6 L 30.0-100 ng/mL Parathyroid Hormone (Intact) 534.4 H 18.4-80.1 pg/mL D-Dimer, Quantitative 0.92 H 0.0-0.49 mg/L FEU Troponin I High Sensitivity 306 *H </=54 ng/L Test 12/12/24 11:45 12/12/24 10:31 12/12/24 10:30 Range/Units Troponin I High Sensitivity 311 *H 309 *H </=54 ng/L Influenza Type A Antigen Negative Negative Influenza Type B Antigen Negative Negative SARS-CoV-2 Antigen (Rapid) Negative NEGATIVE White Blood Count 11.9 H 4.4-10.8 10^3/uL Red Blood Count 3.21 L 4.5-5.90 10^6/uL Hemoglobin 9.1 L 13.5-17.5 g/dL Hematocrit 26.5 L 41.0-53.0 % Mean Corpuscular Volume 82.4 80.0-100.0 fL Mean Corpuscular Hemoglobin 28.5 28.0-32.0 pg Mean Corpuscular Hemoglobin Concent 34.6 32.0-36.0 g/dL Red Cell Distribution Width 14.2 11.8-14.3 % Platelet Count 259 140-450 10^3/uL Mean Platelet Volume 8.9 6.9-10.8 fL Neutrophils (%) (Auto) 80.9 H 37.0-80.0 % Lymphocytes (%) (Auto) 11.3 10.0-50.0 % Monocytes (%) (Auto) 5.2 0.0-12.0 % Eosinophils (%) (Auto) 1.9 0.0-7.0 % Basophils (%) (Auto) 0.7 0.0-2.0 % Neutrophils # (Auto) 9.6 H 1.6-8.6 10 ^3/uL Lymphocytes # (Auto) 1.3 0.4-5.4 10 ^3/uL Monocytes # (Auto) 0.6 0-1.3 10 ^3/uL Eosinophils # (Auto) 0.2 0-0.8 10 ^3/uL Basophils # (Auto) 0.1 0-0.2 10 ^3/uL Nucleated Red Blood Cells 0.0 % Sodium Level 139 136-145 mmol/L Potassium Level 2.7 L 3.5-5.1 mmol/L Chloride Level 107 98-107 mmol/L Carbon Dioxide Level 16 L 20-31 mmol/L Anion Gap 16 H 5-15 Blood Urea Nitrogen 90 *H 9-23 mg/dL Creatinine 8.50 H 0.700-1.30 mg/dL Glomerular Filtration Rate Calc 7 >90 mL/min BUN/Creatinine Ratio 10.6 10.0-20.0 Serum Glucose 136 H 74-106 mg/dL Hemoglobin A1c 4.9 <5.7 % A1C Calcium Level 8.5 L 8.7-10.4 mg/dL B-Type Natriuretic Peptide 1132.68 0-100 pg/mL Triglycerides Level 176 H < 150 mg/dL Cholesterol Level 193 < 200 mg/dL LDL Cholesterol 117 H < 100 mg/dL HDL Cholesterol 51 40-59 mg/dL Thyroid Stimulating Hormone (TSH) 0.37 L 0.55-4.78 uIU/mL Assessment Acute kidney injury superimposed Chronic Kidney Disease secondary hemodynamic mediated Hypertensive urgency Hypokalemia NSTEMI Congestive heart failure exacerbation Anemia of chronic kidney disease Recommendations Closely monitor fluid and electrolytes Avoid nephrotoxic medications Strict I&Os Check urinary electrolytes urine analysis and urine protein excretion Kidney ultrasound reported bilateral echogenic kidney consistent with chronic kidney disease IV nicardipine for blood pressure control Avoid hypotension Check renin and aldosterone rule out hyperaldosteronism Goal systolic blood pressure between 140 and 150 mmHg Check serology and C3 and C4 Check hep B hep C and HIV Once blood pressure is under control patient would benefit from kidney biopsy Cardiology consult Renal diet We will continue to follow Patient seen and examined by myself in the ER bed 10. I discussed my plan of care with the patient, his father and the primary nurse at the bedside Thank Dr. Rodriguez for the consult, will follow up Plan discussed with: Patient, Other NICHELLE SPARKS MD Dec 13, 2024 11:28
[2024-12-13 11:38] LABS: Urine Bacteria None Seen /hpf (None Seen)
--- NOTE | 2024-12-13 12:13 | DVHSR ---
APPROVED REPORT EXAM: Two-dimensional and M-mode echocardiogram with Doppler and color Doppler. Blood Pressure: 178/111 mmHg INDICATION ef RISK FACTORS Height: 5'8, Weight: 154 DIMENSIONS LVDd5.7 (3.8-5.7cm)LA (2D)5.4 (1.9-4.0cm)Aortic Root3.5 (2.0-3.7cm) LVDs4.5 (2.5-4.0cm)LA (MM) (1.9-4.0cm)Aortic Cusp Exc1.9 (1.5-2.0cm) EF (%) 55.0 (55-70%)Rt. Atrium3.7 (1.9-4.0cm)Asc. Aorta3.7 cm IVSd0.9 (0.7-1.1cm)RV (D)4.2 (1.8-2.4cm) PWd1.3 (0.7-1.1cm) Mitral Valve MitralMitral Stenosis E wavem/sMV Mean GR.6mmHg A wavem/sMV Peak GR.162mmHg E/A ratio0.02D MVAcm2 Aortic Valve Aortic ValveAortic Stenosis V11.10m/Rd Mean GR.5mmHg V21.37m/Rd Peak GR.7mmHg LVOT Diameter2.2 (1.8-2.4cm)Doppler AVA3.05cm2 Pulmonic Valve V20.96m/s Tricuspid Valve TR Velocity3.73m/s [id number] Conclusion lvef 50% by visual estimate severe mitral regurg is noted eccentric MR towards posterior leaflet tip posterior leaflet thickened? proplapse? correlate with RONEN left atrium enlarged
[2024-12-13 12:21] LABS: Urine Blood TRACE /uL (Negative); Urine Clarity Clear (Clear); Urine Color Colorless (Yellow); Urine Protein, UAD 1+ (Negative); Urine Specific Gravity 1.008 (1.001-1.035); Urine Squamous Epithelial Cell None Seen /hpf (<5); Urine Urobilinogen Normal (Negative); Urine WBC < 1 /HPF (0-3); Urine pH 5.5 (5.0-9.0)
[2024-12-13 12:31] LABS: Anion Gap 13 (5-15); Chloride 106 mmol/L (98-107); Sodium 137 mmol/L (136-145)
[2024-12-13 12:32] LABS: Calcium 9.2 mg/dL (8.7-10.4)
[2024-12-13 12:36] LABS: Uric Acid 7.7 mg/dL (3.7-9.2)
[2024-12-13 12:37] LABS: BUN/Creatinine Ratio 11.3 (10.0-20.0); Magnesium 1.7 mg/dL (1.6-2.6)
[2024-12-13 12:39] LABS: Creatine Kinase IFCC 49 U/L (46-171)
[2024-12-13 13:12] LABS: Carbon Dioxide 18 mmol/L (20-31); Glucose 132 mg/dL (74-106); Potassium 3.3 mmol/L (3.5-5.1)
[2024-12-13 13:16] LABS: Blood Urea Nitrogen 91 mg/dL (9-23)
[2024-12-13 13:30] VITALS: PULSE 114; RESP 18; O2SAT 96
[2024-12-13] MEDS: POTASSIUM CHL 20MEQ/100ML 100 ML IV SCH (13:30)
[2024-12-13 13:32] LABS: Hepatitis B Surface Antigen Negative (Negative); Hepatitis C Antibody Negative (Negative)
[2024-12-13] MEDS: FUROSEMIDE 40 MG/4 ML VIAL IV SCH (14:15)
--- NOTE | 2024-12-13 15:38 | DVHINCON2 ---
CAYDEN ALVAREZ [facility] 12/13/24 1538: Date Seen: Dec 13, 2024 Referring Physician AMBROSE Wilson Reason for Consultation CHF History of Present Illness This is a 44-year-old male patient who presents to the emergency room with chief complaint of shortness of breath for approximately three weeks. He comes to the emergency room for further evaluation. Upon emergency room arrival he was noted to have a blood pressure reaching as high as 246/159. Cardiology has been consulted at this time for congestive heart failure. Initial twelve lead electrocardiogram reveals sinus tachycardia with left ventricular hypertrophy. Initial BNP level of 1132.68pg/mL. Initial troponin level of 309ng/L with flat trend thereafter. Significant past medical history includes hypertension, previous cocaine abuse, and marijuana use. The patient reports he stopped taking all of his antihypertensive medications after losing weight. He states he thought he did not need medication anymore. Past Medical History Past medical history reviewed. No other significant than mentioned above. Past Surgical History Cyst removal on back Family History Family history reviewed. Social History Patient admits to previous cocaine use, quit approximately 14 months ago Patient admits to marijuana use Patient denies any alcohol use Patient denies any tobacco use Allergies: Coded Allergies: NO KNOWN ALLERGIES (Unverified , 12/12/24) Home Meds Denies taking any prescribed medications Current Medications Current Medications Medications (Trade) Dose Ordered Sig/Clara Route PRN Reason Start Time Stop Time Status Last Admin Nitroglycerin (Ntrostat Sublingual) 0.4 mg Q5MINP PRN SL FOR CHEST PAIN 12/12/24 19:15 Morphine Sulfate 2 mg Q30M PRN IV FOR CHEST PAIN 12/12/24 19:15 Aspirin 162 mg DAILY PO 12/13/24 10:00 12/13/24 10:11 Atorvastatin Calcium (Lipitor) 10 mg HS PO 12/12/24 22:00 12/12/24 21:39 Metoprolol Tartrate (Lopressor Tablet) 25 mg BID PO 12/12/24 22:00 12/13/24 08:10 DC 12/12/24 21:40 Amlodipine Besylate (Norvasc Tablet) 10 mg DAILY PO 12/13/24 10:00 12/13/24 09:16 DC Temazepam (Restoril) 15 mg QHSP PRN PO FOR INSOMNIA 12/12/24 19:45 Ondansetron HCl (Zofran) 4 mg Q4HP PRN IV NAUSEA / VOMITING 12/12/24 19:45 Acetaminophen (Tylenol Tablet) 650 mg Q6HP PRN PO PAIN SCALE 1-3 OR TEMP>100.4 12/12/24 19:45 Furosemide (Lasix Injection) 20 mg BIDD IV 12/13/24 06:00 12/13/24 08:11 DC 12/13/24 06:10 Hydralazine HCl (Apresoline Injection) 10 mg Q6HP PRN IV SBP>150 12/13/24 04:30 12/13/24 08:10 DC 12/13/24 05:03 Diltiazem HCl 125 ml @ 5 mls/hr Q24H IV 12/13/24 08:45 12/13/24 08:56 DC Nicardipine HCl 250 ml @ 50 mls/hr Q5H IV 12/13/24 09:00 12/13/24 09:24 DC 12/13/24 09:10 Nitroglycerin 250 ml @ 1.5 mls/hr Q24H IV 12/13/24 09:30 12/13/24 12:19 DC 12/13/24 10:12 Potassium Chloride 100 ml @ 50 mls/hr Q2H IV 12/13/24 11:30 12/13/24 15:29 DC 12/13/24 13:30 Nicardipine HCl 250 ml @ 50 mls/hr Q5H IV 12/13/24 14:00 12/13/24 14:15 Furosemide (Lasix Injection) 40 mg BIDD IV 12/13/24 14:00 12/13/24 14:15 Review of Systems Constitutional: No symptom reported Ears, Nose, & Throat: No symptom reported Eyes: No symptom reported Neurological: No symptoms reported Pulmonary/Respiratory: Shortness of breath Cardiovascular: No symptom reported Gastrointestinal: No symptom reported Genitourinary: No symptom reported Musculoskeletal: No symptom reported Skin: No symptom reported Psychiatric: No symptom reported Endocrine: No symptom reported Hematologic/Lymphatic: No symptom reported Vital Signs Vital Signs Date Time Temp Pulse Resp B/P (MAP) Pulse Ox O2 Delivery O2 Flow Rate FiO2 12/13/24 14:45 113 19 195/132 (153) 96 12/13/24 13:30 Nasal Cannula* 2 28 12/12/24 18:00 98.2 98.2 Physical Exam General Appearance: Cooperative. Well-developed. Well-nourished. No acute distress. Pulmonary/Respiratory: Coarse throughout Cardiovascular/Chest: Regular rate and rhythm. Peripheral Pulses: 2+ Radial (R). 2+ Radial (L). 2+ Pedal (R). 2+ Pedal (L) Abdominal Exam: Normal bowel sounds. Ankle Exam: Negative ankle edema Lower extremities: Negative lower extremity edema Neuro/Mental Status: A/OX4, coherent. Thoughts/Psych: Normal thought pattern. Appropriate mood and affect. Good judgment and insight. Appearance: No acute distress. Skin Exam: Normal inspection. Normal color. Warm and dry. Labs/Diagnostic Data Labs Test 12/13/24 14:26 12/13/24 12:00 12/13/24 10:45 12/13/24 08:49 Range/Units Sodium Level 137 136-145 mmol/L Potassium Level 3.3 L 3.5-5.1 mmol/L Chloride Level 106 98-107 mmol/L Carbon Dioxide Level 18 L 20-31 mmol/L Anion Gap 13 5-15 Blood Urea Nitrogen 91 *H 9-23 mg/dL Creatinine 8.04 H 0.700-1.30 mg/dL Glomerular Filtration Rate Calc 8 >90 mL/min BUN/Creatinine Ratio 11.3 10.0-20.0 Serum Glucose 132 H 74-106 mg/dL Uric Acid 7.7 3.7-9.2 mg/dL Calcium Level 9.2 8.7-10.4 mg/dL Magnesium Level 1.7 1.6-2.6 mg/dL Creatine Kinase 49 46-171 U/L Parathyroid Hormone (Intact) 650.2 H 18.4-80.1 pg/mL Hepatitis B Surface Antigen Negative Negative Hepatitis C Antibody Negative Negative HIV (1&2) Antibody Negative Negative Urine Color Colorless Yellow Urine Clarity Clear Clear Urine pH 5.5 5.0-9.0 Urine Specific [place] 1.008 1.001-1.035 Urine Protein 1+ H Negative Urine Ketones Negative Negative Urine Blood Trace H Negative /uL Urine Nitrite Negative Negative Urine Bilirubin Negative Negative Urine Urobilinogen Normal Negative mg/dL Urine Leukocyte Esterase Negative Negative /uL Urine RBC 1 0 - 3 /hpf Urine Microscopic WBC < 1 0-3 /HPF Urine Squamous Epithelial Cells None seen <5 /hpf Urine Bacteria None seen None Seen /hpf Urine Glucose Normal Normal mg/dL POC Glucose 109 H 70-106 mg/dl Test 12/13/24 05:25 12/12/24 21:54 12/12/24 20:37 12/12/24 13:59 Range/Units White Blood Count 12.0 H 4.4-10.8 10^3/uL Red Blood Count 2.95 L 4.5-5.90 10^6/uL Hemoglobin 8.3 L 13.5-17.5 g/dL Hematocrit 24.3 L 41.0-53.0 % Mean Corpuscular Volume 82.3 80.0-100.0 fL Mean Corpuscular Hemoglobin 28.3 28.0-32.0 pg Mean Corpuscular Hemoglobin Concent 34.4 32.0-36.0 g/dL Red Cell Distribution Width 14.5 H 11.8-14.3 % Platelet Count 238 140-450 10^3/uL Mean Platelet Volume 9.1 6.9-10.8 fL Neutrophils (%) (Auto) 82.4 H 37.0-80.0 % Lymphocytes (%) (Auto) 9.9 L 10.0-50.0 % Monocytes (%) (Auto) 5.6 0.0-12.0 % Eosinophils (%) (Auto) 1.3 0.0-7.0 % Basophils (%) (Auto) 0.8 0.0-2.0 % Neutrophils # (Auto) 9.9 H 1.6-8.6 10 ^3/uL Lymphocytes # (Auto) 1.2 0.4-5.4 10 ^3/uL Monocytes # (Auto) 0.7 0-1.3 10 ^3/uL Eosinophils # (Auto) 0.2 0-0.8 10 ^3/uL Basophils # (Auto) 0.1 0-0.2 10 ^3/uL Nucleated Red Blood Cells 0.0 % Total Bilirubin 0.3 0.2-1.0 mg/dL Aspartate Amino Transferase (AST) 31 13-40 U/L Alanine Aminotransferase (ALT) 35 7-40 U/L Alkaline Phosphatase 67 46-116 U/L Total Protein 6.1 5.7-8.2 g/dL Albumin 3.8 3.2-4.8 g/dL Vitamin B12 Level 548 211-911 pg/mL Vitamin D 25-Hydroxy 10.6 L 30.0-100 ng/mL D-Dimer, Quantitative 0.92 H 0.0-0.49 mg/L FEU Troponin I High Sensitivity 306 *H </=54 ng/L Test 12/12/24 10:31 12/12/24 10:30 Range/Units Influenza Type A Antigen Negative Negative Influenza Type B Antigen Negative Negative SARS-CoV-2 Antigen (Rapid) Negative NEGATIVE Hemoglobin A1c 4.9 <5.7 % A1C B-Type Natriuretic Peptide 1132.68 0-100 pg/mL Triglycerides Level 176 H < 150 mg/dL Cholesterol Level 193 < 200 mg/dL LDL Cholesterol 117 H < 100 mg/dL HDL Cholesterol 51 40-59 mg/dL Thyroid Stimulating Hormone (TSH) 0.37 L 0.55-4.78 uIU/mL Assessment Acute on chronic decompensated HFpEF, NYHA class IV Hypertensive urgency NSTEMI, likely type 2 secondary to above Severe mitral valve regurgitation Acute kidney injury Hypokalemia History of cocaine abuse Plan/Recommendation We will continue with the following plan/recommendations (Dr. Rowan): Case reviewed and discussed with . Transthoracic echocardiogram reveals EF 50% with severe mitral valve regurgitation. At this time, we will recommend aggressive blood pressure control and diuresis as tolerated. The patient will benefit from a repeat transthoracic echocardiogram in the future to reassess mi tral valve regurgitation once blood pressure is well controlled. Continue with close cardiac surveillance. Thank you for allowing us to care for this patient. Please call with any questions or concerns. Critical care time spent: 40 minutes This medical document was created using an electronic medical record system with voice recognition software and computerized dictation system. Although this document has been carefully reviewed, there might still be some phonetic and typographical errors. Occasional wrong-word or ``sound-alike substitutions may have occurred due to the inherent limitations of voice recognition software. These areas are purely typographical due to imperfections of the software programs and do not reflect any compromise in the patient's medical care. Please read the chart carefully and recognize, using context, where these substitutions have occurred. Plan discussed with: Patient NYHA Physical activity limitations: Class3(Marked) ordinary (activity causes symtoms) Date of Service: Dec 13, 2024 Billing Provider: CAYDEN ALVAREZ Cardiology Common Codes: [id number] INP/OBS CARE (High) Cardiology Consultation Codes: [id number] CONSULT <45MIN SUSAN ROWAN MD 12/13/24 1950: Allergies: Coded Allergies: NO KNOWN ALLERGIES (Unverified , 12/12/24) Plan/Recommendation PATIENT SEEN WITH CARDIAC TEAM BP IS VERY HIGH ON ADMIT, BETTER NOW PT IS IN PATRICIO SEVERE MR, NEEDS AFTERLOAD REDUCTION AND BP CONTROL FU RENAL RECS CONSIDER OUTPT ECHO ONCE BP BETTER PRIOR TO FURTHER EVAL DIURETICS PRN Plan discussed with: Patient CAYDEN ALVAREZ [facility] Dec 13, 2024 15:38 SUSAN ROWAN MD Dec 13, 2024 19:50
[2024-12-13] MEDS: LABETALOL HCL 200 MG TAB PO SCH (15:54)
--- NOTE | 2024-12-13 16:09 | DVH ---
EXAM: NM NM VQ SCAN HISTORY: PULMONARY EMBOLISM COMPARISON: None TECHNIQUE: Following the administration of the ventilation agent, standard projections of the lungs were acquired. The same images were repeated after administration of the perfusion agent. Findings: Ventilation images demonstrate homogenous distribution of radiotracer throughout both lungs. Perfusion images demonstrate homogeneous distribution of radiotracer throughout both lungs. No periph eral wedge-shaped moderate or large subsegmental or segmental mismatched perfusion defects to suggest acute pulmonary embolism. Impression: 1. Based on PIOPED criteria, low probability for pulmonary embolism.
[2024-12-13] MEDS: ATORVASTATIN 20 MG TAB PO SCH (22:29)
[2024-12-14] VITALS (48 sets, daily range): BP systolic 107–166; BP diastolic 38–113; PULSE 87–105; RESP 10–23; TEMP 97.8; O2SAT 91–100
[2024-12-14 07:07] LABS: RPR Non Reactive (Non Reactive)
[2024-12-14 07:21] LABS: Alkaline Phosphatase 63 U/L (46-116); Anion Gap 16 (5-15); BUN/Creatinine Ratio 10.7 (10.0-20.0); Calcium 9.2 mg/dL (8.7-10.4); Chloride 105 mmol/L (98-107); Glucose 104 mg/dL (74-106); Potassium 3.6 mmol/L (3.5-5.1); Sodium 136 mmol/L (136-145)
[2024-12-14 07:22] LABS: Albumin 3.7 g/dL (3.2-4.8); Aspartate Aminotransferase 32 U/L (13-40); Total Protein 6.1 g/dL (5.7-8.2)
[2024-12-14 07:27] LABS: Eosinophils # (auto) 0.2 10 ^3/uL (0-0.8); Eosinophils % (auto) 2.3 % (0.0-7.0); Hematocrit 22.8 % (41.0-53.0); Hemoglobin 7.9 g/dL (13.5-17.5); Lymphocytes # (auto) 1.2 10 ^3/uL (0.4-5.4); Mean Corpuscular Hemoglobin 28.8 pg (28.0-32.0); Monocytes # (auto) 0.5 10 ^3/uL (0-1.3); Monocytes % (auto) 6.7 % (0.0-12.0); Red Blood Cells 2.74 10^6/uL (4.5-5.90); White Blood Cell 7.9 10^3/uL (4.4-10.8)
[2024-12-14 07:29] LABS: Basophils # (auto) 0 10 ^3/uL (0-0.2); Basophils % (auto) 0.6 % (0.0-2.0); Lymphocytes % (auto) 14.7 % (10.0-50.0); Mean Corpuscular Hgb Conc. 34.6 g/dL (32.0-36.0); Mean Corpuscular Volume 83.3 fL (80.0-100.0); Neutrophils % (auto) 75.7 % (37.0-80.0); Platelet Count (auto) 202 10^3/uL (140-450); Red Cell Distribution Width 14.5 % (11.8-14.3)
[2024-12-14 07:30] LABS: Alanine Aminotransferase 53 U/L (7-40); Bilirubin, Total 0.3 mg/dL (0.2-1.0); Carbon Dioxide 15 mmol/L (20-31)
[2024-12-14 07:31] LABS: Blood Urea Nitrogen 95 mg/dL (9-23)
[2024-12-14 08:06] LABS: Free Thyroxine Index 3.5 (1.2-4.9); Thyroxine (T4) 8.4 ug/dL (4.5-12.0)
--- NOTE | 2024-12-14 11:16 | DVHPN2 ---
Progress Note Date Seen: Dec 14, 2024 Medical Necessity Reason Pt with a Central, PICC or Fol: No Subjective Patient reports: No new complaints Other Systems: Patient seen and examined by myself today in follow-up Objective vital signs Vital Sign Date Time Temp Pulse Resp B/P (MAP) Pulse Ox O2 Delivery O2 Flow Rate FiO2 12/14/24 10:51 101 126/67 12/14/24 10:30 16 97 Room Air* 0 21 12/13/24 19:45 98.0 98.0 Total Intake and Output 12/13/24 12/13/24 12/14/24 15:00 23:00 07:00 Intake Total 315.5 ml 275 ml Output Total 300 ml Balance 315.5 ml -25 ml medications Current Medications Medications Dose Ordered Sig/Clara Route Start Time Stop Time Status Last Admin Dose Admin Nitroglycerin 0.4 mg Q5MINP PRN SL 12/12/24 19:15 Morphine Sulfate 2 mg Q30M PRN IV 12/12/24 19:15 Temazepam 15 mg QHSP PRN PO 12/12/24 19:45 Ondansetron HCl 4 mg Q4HP PRN IV 12/12/24 19:45 Acetaminophen 650 mg Q6HP PRN PO 12/12/24 19:45 Furosemide 40 mg BIDD IV 12/13/24 14:00 12/14/24 06:31 40 MG Labetalol HCl 400 mg Q12HR PO 12/13/24 15:30 12/14/24 10:51 400 MG Atorvastatin Calcium 40 mg HS PO 12/13/24 22:00 12/13/24 22:29 40 MG Nicardipine HCl 250 ml @ 50 mls/hr Q5H IV 12/13/24 19:00 12/14/24 06:55 50 MLS/HR Aspirin 81 mg DAILY PO 12/15/24 10:00 Examination: LUNGS:Normal, CVS:Normal, MSK:Normal laboratory and microbiology Laboratory Tests 12/14/24 06:10 Test 12/14/24 06:10 Range/Units Serum Glucose 104 74-106 mg/dL Problem List/Assessment/Plan Problem List/Assessment/Plan Acute kidney injury superimposed Chronic Kidney Disease secondary hemodynamic mediated now end-stage renal disease requiring hemodialysis Hypertensive urgency, improved Hypokalemia NSTEMI Congestive heart failure exacerbation Anemia of chronic kidney disease Recommendations Consents for tunneled IJ hemodialysis catheter, kidney biopsy and hemodialysis Epogen 30646 IV post hemodialysis Strict I&Os Check urinary electrolytes urine analysis and urine protein excretion Kidney ultrasound reported bilateral echogenic kidney consistent with chronic kidney disease Labetalol Avoid hypotension Check renin and aldosterone rule out hyperaldosteronism DC nicardipine drip Continue labetalol 400 mg p.o. b.i.d. Check serology and C3 and C4 Check hep B hep C and HIV Radiology consult for tunneled IJ hemodialysis catheter and kidney biopsy Cardiology consult Renal diet Social service for outpatient hemodialysis chair time We will continue to follow Plan discussed with: Patient My Orders My Orders Orders - NICHELLE SPARKS MD Procedure Category Date Status Time Urine Sodium LAB 12/13/24 In Process 11:15 Urine Creatinine LAB 12/13/24 In Process 11:15 Drug Screen LAB 12/13/24 In Process 11:15 Renin Activity And LAB 12/13/24 In Process Aldosterone 11:15 Alma Direct W/Reflex LAB 12/13/24 In Process To Comp. 11:21 Anca Panel LAB 12/13/24 In Process 11:21 Complement C3 & C4 LAB 12/13/24 In Process 11:21 RPR LAB 12/13/24 In Process 11:21 Transfer Orders XFER 12/13/24 Transmitted 11:48 Labetalol Hcl Tablet PHA 12/13/24 In Process (Normodyne Tablet) 15:30 * Radiologist Consult CONS 12/14/24 Transmitted 11:10 * Radiologist Consult CONS 12/14/24 Transmitted 11:10 NICHELLE SPARKS MD Dec 14, 2024 11:16
[2024-12-14 12:45] LABS: INR 1.02 (0.9-1.15); Partial Thromboplastin Time 29.9 SEC (24.5-34.5); Prothrombin Time 10.8 sec (9.3-11.8)
[2024-12-14] MEDS ORDERED: POLYETHYLENE GLYCOL 17 GM PWDR PO PRN (12:45)
[2024-12-14 12:48] LABS: Sodium Urine 86 mmol/L (40-220)
[2024-12-14 12:55] LABS: Creatinine, Urine 37.95 mg/dL (30.0-125.0)
[2024-12-14 12:57] LABS: Amphetamine Screen, Urine Neg (NEGATIVE); Barbiturate Scree,Urine Neg (NEGATIVE); Benzodiazephine Screen, Urine Neg (NEGATIVE); Cocaine Screen, Urine Neg (NEGATIVE); Opiate Scree,Urine Neg (NEGATIVE); Phencyclidine Screen, Urine Neg (NEGATIVE)
[2024-12-14 13:35] LABS: Cannabinoid Screen, Urine Neg (NEGATIVE)
[2024-12-14 14:06] LABS: Anti-Nuclear Antibody Direct Negative (Negative)
--- NOTE | 2024-12-14 16:00 | DVHPNRES ---
Progress Note Date Seen: Dec 14, 2024 Resident Creating Document: NORMAN CHAO RESIDENT Medical Necessity Reason Pt with a Central, PICC or Fol: No Subjective Review of Systems This is a 44-year-old male patient with PMH of hypertension on no medications, history of cocaine use, presented to the ER with a chief complaint of shortness of breaths for the past 2-3 weeks, associated with orthopnea, PND. Also associated with dry cough for the past 3 weeks. Denies chest pain/palpitations. He smokes marijuana daily, this cocaine for the past 5 years quit 2023, drinks occasionally. Has not seen a physician in years, has no PCP. EKG completed shows LVH criteria. Sinus tachycardia. Patient seen and examined at the bedside. Nicardipine was turned off 8:15 a.m.. Radiology consulted for tunneled IJ, hemodialysis pending. Pending kidney biopsy. Objective vital signs Vital Sign Date Time Temp Pulse Resp B/P (MAP) Pulse Ox O2 Delivery O2 Flow Rate FiO2 12/14/24 15:00 90 16 140/93 (109) 96 12/14/24 10:30 Room Air* 0 21 12/13/24 19:45 98.0 98.0 Total Intake and Output 12/13/24 12/13/24 12/14/24 15:00 23:00 07:00 Intake Total 315.5 ml 275 ml 50 ml Output Total 300 ml Balance 315.5 ml -25 ml 50 ml medications Current Medications Medications Dose Ordered Sig/Clara Route Start Time Stop Time Status Last Admin Dose Admin Nitroglycerin 0.4 mg Q5MINP PRN SL 12/12/24 19:15 Morphine Sulfate 2 mg Q30M PRN IV 12/12/24 19:15 Temazepam 15 mg QHSP PRN PO 12/12/24 19:45 Ondansetron HCl 4 mg Q4HP PRN IV 12/12/24 19:45 Acetaminophen 650 mg Q6HP PRN PO 12/12/24 19:45 Furosemide 40 mg BIDD IV 12/13/24 14:00 12/14/24 06:31 40 MG Labetalol HCl 400 mg Q12HR PO 12/13/24 15:30 12/14/24 10:51 400 MG Atorvastatin Calcium 40 mg HS PO 12/13/24 22:00 12/13/24 22:29 40 MG Aspirin 81 mg DAILY PO 12/15/24 10:00 Polyethylene Glycol 17 gm DAILYPRN PRN PO 12/14/24 12:45 Examination Patient lying in bed in the ER, no acute distress General: Well-built, afebrile, palor, mucosae are moist Cardiovascular: Regular S1 and S2. No murmurs, gallops or rubs. No JVD elevation. No pedal edema Respiratory: Bilateral crackles heard on auscultation. Wean off oxygen. Saturating 94 on room air. Abdomen: Soft, nontender, nondistended, normoactive bowel sounds, no rebound tenderness, no organomegaly, no masses Genitourinary: Deferred MSK/skin: Mobilizes 4 limbs. Skin is dry and warm Neurological: No motor, no sensitive deficits, normal speech. Pupils are isocoric and reactive. Psych/Mental Status: A/Ox3 laboratory and microbiology Laboratory Tests 12/14/24 06:10 Test 12/14/24 06:10 Range/Units Serum Glucose 104 74-106 mg/dL Labs and/or images reviewed: Labs reviewed by me, Image(s) reviewed by me Problem List/Assessment/Plan Problem List/Assessment/Plan Sirs secondary to Hypertensive emergency Systolic congestive heart failure exacerbation - newly diagnosed Acute hypoxic respiratory failure secondary to above - resolved NSTEMI, likely type 2 Severe MR History of cocaine use ? Hyper Aldosteronism TTE performed, EF 50% with severe MR. Coordinate with RONEN BNP [address] Started nicardipine drip, target SBP between 140 and 150 Nephrology started labetalol 400 mg p.o. q.12 Continue aspirin daily Furosemide 40 mg IV b.i.d. Renin/aldosterone pending Cardiology - At this time, we will recommend aggressive blood pressure control and diuresis as tolerated. The patient will benefit from a repeat transthoracic echocardiogram in the future to reassess mitral valve regurgitation once blood pressure is well controlled. PATRICIO on CKD, now ESRD Secondary hyperparathyroidism Left Renal cyst Renal ultrasound completed, shows Increased echogenicity of bilateral kidneys. Correlate for medical renal disease. Nephrology on board - kidney biopsy, hemodialysis Pending tunneled cath placement Hyperlipidemia Continue atorvastatin 40 mg daily Anemia, likely microcytic Pending stool occult Euthyroid sick syndrome Monitor Hypokalemia Replenish Vitamin-D deficiency Replenish Plan discussed with patient in which all questions have been answered Case discussed With Dr. Vazquez. Pending tunneled IJ placement, pending hemodialysis, renal biopsy Plan discussed with: Patient My Orders My Orders Orders - NORMAN CHAO Procedure Category Date Status Time Atorvastatin (Lipitor) PHA 12/13/24 In Process 22:00 * Inspector Automatic Typewriter CONS 12/14/24 Transmitted Consult Date of Service: Dec 14, 2024 Billing Provider: ITALO POPE MD Common Visit Codes: [id number] INP/OBS CARE(HIGH) NORMAN CHAO Dec 14, 2024 16:00 ITALO POPE MD Dec 19, 2024 00:02
[2024-12-14] MEDS: ERGOCALCIFEROL 50,000 UNIT(1.25MG) CAP PO SCH (17:57)
--- NOTE | 2024-12-14 19:33 | DVHPN2 ---
Consult Progress Note Subjective Other Systems: Patient in normal sinus rhythm on manager cardiac. Denies cardiac symptoms at time of assessment Objective vital signs Vital Sign Date Time Temp Pulse Resp B/P (MAP) Pulse Ox O2 Delivery O2 Flow Rate FiO2 12/14/24 19:15 101 160/111 (127) 97 12/14/24 18:00 97.8 16 97.8 12/14/24 17:30 Room Air* 0 21 Total Intake and Output 12/13/24 12/13/24 12/14/24 15:00 23:00 07:00 Intake Total 315.5 ml 275 ml 50 ml Output Total 300 ml Balance 315.5 ml -25 ml 50 ml medications Current Medications Medications Dose Ordered Sig/Clara Route Start Time Stop Time Status Last Admin Dose Admin Nitroglycerin 0.4 mg Q5MINP PRN SL 12/12/24 19:15 Morphine Sulfate 2 mg Q30M PRN IV 12/12/24 19:15 Temazepam 15 mg QHSP PRN PO 12/12/24 19:45 Ondansetron HCl 4 mg Q4HP PRN IV 12/12/24 19:45 Acetaminophen 650 mg Q6HP PRN PO 12/12/24 19:45 Furosemide 40 mg BIDD IV 12/13/24 14:00 12/14/24 17:56 40 MG Labetalol HCl 400 mg Q12HR PO 12/13/24 15:30 12/14/24 10:51 400 MG Atorvastatin Calcium 40 mg HS PO 12/13/24 22:00 12/13/24 22:29 40 MG Aspirin 81 mg DAILY PO 12/15/24 10:00 Polyethylene Glycol 17 gm DAILYPRN PRN PO 12/14/24 12:45 Ergocalciferol 50,000 unit Q7D PO 12/14/24 16:00 12/14/24 17:57 50,000 UNIT Examination: GENERAL:Normal, LUNGS:Abnormal (Diminished bilateral lower lobes), CVS:Normal, NEURO:Normal laboratory and microbiology Laboratory Tests 12/14/24 06:10 Test 12/14/24 06:10 Range/Units Serum Glucose 104 74-106 mg/dL Problem List/Assessment/Plan Problem List/Assessment/Plan Acute on chronic decompensated HFpEF, NYHA class IV Hypertensive urgency NSTEMI, likely type 2 secondary to above Severe mitral valve regurgitation Acute kidney injury Hypokalemia History of cocaine abuse Plan/Recommendation (Dr. Boo): Patient seen and examined in the emergency room with . Transthoracic echocardiogram reveals EF 50% with severe mitral valve regurgitation. At this time, we will recommend aggressive blood pressure control and diuresis as tolerated. The patient will benefit from a repeat transthoracic echocardiogram in the future to reassess mitral valve regurgitation once blood pressure is well controlled. He may also eventually need a transesophageal echocardiogram in the future if no improvement in mitral valve regurgitation. This may be done as outpatient. Cardiology will sign off. Patient should follow up with Cardiology in the outpatient setting in 1-2 weeks post discharge. Thank you for allowing us to care for this patient. Please call with any questions or concerns. This medical document was created using an electronic medical record system with voice recognition software and computerized dictation system. Although this document has been carefully reviewed, there might still be some phonetic and typographical errors. Occasional wrong-word or ``sound-alike substitutions may have occurred due to the inherent limitations of voice recognition software. These areas are purely typographical due to imperfections of the software programs and do not reflect any compromise in the patient's medical care. Please read the chart carefully and recognize, using context, where these substitutions have occurred. Plan discussed with: Patient Date of Service: Dec 14, 2024 Billing Provider: CAYDEN ALVAREZ Common Visit Codes: [id number] INP/OBS CARE(HIGH) CAYDEN ALVAREZ Dec 14, 2024 19:33
[2024-12-15] VITALS (9 sets, daily range): BP systolic 122–148; BP diastolic 78–105; PULSE 65–95; RESP 15–18; TEMP 97.6–99.2; O2SAT 93–98
[2024-12-15 05:59] LABS: Basophils # (auto) 0 10 ^3/uL (0-0.2); Basophils % (auto) 0.5 % (0.0-2.0); Eosinophils # (auto) 0.2 10 ^3/uL (0-0.8); Eosinophils % (auto) 3.3 % (0.0-7.0); Hematocrit 22.7 % (41.0-53.0); Hemoglobin 7.8 g/dL (13.5-17.5); Lymphocytes # (auto) 1.2 10 ^3/uL (0.4-5.4); Lymphocytes % (auto) 16.1 % (10.0-50.0); Mean Corpuscular Hemoglobin 28.8 pg (28.0-32.0); Mean Corpuscular Hgb Conc. 34.5 g/dL (32.0-36.0); Mean Corpuscular Volume 83.5 fL (80.0-100.0); Monocytes # (auto) 0.5 10 ^3/uL (0-1.3); Neutrophils # (auto) 5.6 10 ^3/uL (1.6-8.6); Neutrophils % (auto) 74.1 % (37.0-80.0); Platelet Count (auto) 212 10^3/uL (140-450); Red Blood Cells 2.72 10^6/uL (4.5-5.90); Red Cell Distribution Width 14.6 % (11.8-14.3); White Blood Cell 7.6 10^3/uL (4.4-10.8)
[2024-12-15 06:16] LABS: Albumin 3.9 g/dL (3.2-4.8); Alkaline Phosphatase 62 U/L (46-116); Anion Gap 16 (5-15); Aspartate Aminotransferase 25 U/L (13-40); BUN/Creatinine Ratio 11.3 (10.0-20.0); Chloride 106 mmol/L (98-107); Glucose 102 mg/dL (74-106); Sodium 138 mmol/L (136-145); Total Protein 6.1 g/dL (5.7-8.2)
[2024-12-15 06:26] LABS: Alanine Aminotransferase 50 U/L (7-40); Bilirubin, Total 0.2 mg/dL (0.2-1.0); Carbon Dioxide 16 mmol/L (20-31); Potassium 3.4 mmol/L (3.5-5.1)
[2024-12-15 06:28] LABS: Blood Urea Nitrogen 100 mg/dL (9-23)
[2024-12-15 08:06] LABS: Complement C3 141 mg/dL (82-167)
[2024-12-15] MEDS: hydrALAZINE HCL 10 MG TAB PO SCH (08:07)
[2024-12-15] MEDS: POTASSIUM CHL 20 Meq TABLET PO ONE (08:07)
[2024-12-15] MEDS: amLODIPine BESYLATE 5 MG TAB PO ONE (08:08)
[2024-12-15] MEDS: ASPirin 81 mg TAB PO SCH (10:00)
--- NOTE | 2024-12-15 10:50 | DVHPN2 ---
Progress Note Date Seen: Dec 15, 2024 Medical Necessity Reason Pt with a Central, PICC or Fol: No Subjective Patient reports: No new complaints Other Systems: Patient seen and examined by myself today in follow-up Patient examined hemodialysis, blood pressure stable Objective vital signs Vital Sign Date Time Temp Pulse Resp B/P (MAP) Pulse Ox O2 Delivery O2 Flow Rate FiO2 12/15/24 08:08 131/83 12/15/24 07:44 98.7 93 15 96 98.7 12/15/24 07:44 Room Air* 0 21 Total Intake and Output 12/14/24 12/14/24 12/15/24 15:00 23:00 07:00 Intake Total 50 ml 650 ml Output Total 1625 ml Balance 50 ml -975 ml medications Current Medications Medications Dose Ordered Sig/Clara Route Start Time Stop Time Status Last Admin Dose Admin Nitroglycerin 0.4 mg Q5MINP PRN SL 12/12/24 19:15 Morphine Sulfate 2 mg Q30M PRN IV 12/12/24 19:15 Temazepam 15 mg QHSP PRN PO 12/12/24 19:45 Ondansetron HCl 4 mg Q4HP PRN IV 12/12/24 19:45 Acetaminophen 650 mg Q6HP PRN PO 12/12/24 19:45 Furosemide 40 mg BIDD IV 12/13/24 14:00 12/14/24 17:56 40 MG Labetalol HCl 400 mg Q12HR PO 12/13/24 15:30 12/14/24 22:22 400 MG Atorvastatin Calcium 40 mg HS PO 12/13/24 22:00 12/14/24 22:20 40 MG Aspirin 81 mg DAILY PO 12/15/24 10:00 Polyethylene Glycol 17 gm DAILYPRN PRN PO 12/14/24 12:45 Ergocalciferol 50,000 unit Q7D PO 12/14/24 16:00 12/14/24 17:57 50,000 UNIT Amlodipine Besylate 10 mg DAILY PO 12/16/24 10:00 Hydralazine HCl 10 mg Q8HR PO 12/15/24 07:45 12/15/24 08:07 10 MG Examination: LUNGS:Normal, CVS:Normal, MSK:Normal laboratory and microbiology Laboratory Tests 12/15/24 05:38 Test 12/15/24 05:38 Range/Units Serum Glucose 102 74-106 mg/dL Problem List/Assessment/Plan Problem List/Assessment/Plan Acute kidney injury superimposed Chronic Kidney Disease secondary hemodynamic mediated now end-stage renal disease requiring hemodialysis Hypertensive urgency, improved Hypokalemia NSTEMI Congestive heart failure, Diastolic dysfunction Anemia of chronic kidney disease Secondary hyperparathyroidism Vitamin-D deficiency Recommendations Continue with UF to 3 L as tolerated Epogen 67307 IV post hemodialysis Hemodialysis again tomorrow Strict I&Os Kidney ultrasound reported bilateral echogenic kidney consistent with chronic kidney disease Continue labetalol 400 mg p.o. b.i.d. Amlodipine 10 mg p.o. q.day Discontinue aspirin for five days before kidney biopsy Renvela 2400 mg p.o. t.i.d. with meals Ergocalciferol 30101 units p.o. q.week Cardiology consult Renal diet Social service for outpatient hemodialysis chair time We will continue to follow Plan discussed with: Patient My Orders My Orders Orders - NICHELLE SPARKS MD Procedure Category Date Status Time * Radiologist Consult CONS 12/14/24 Transmitted 11:10 * Radiologist Consult CONS 12/14/24 Transmitted 11:10 Hemodialysis Orders ORDERS 12/15/24 Transmitted 07:00 Dialysis Nursing VICENTE 12/15/24 In Process Message 07:00 Document Fluid Input VICENTE 12/15/24 In Process And Outpu 07:00 Epoetin Yariel-Epbx PHA 12/15/24 In Process (Retacrit) 21:00 Order Routine Aptt VICENTE 12/14/24 In Process 11:20 NICHELLE SPARKS MD Dec 15, 2024 10:50
--- NOTE | 2024-12-15 10:56 | DVHPNRES ---
Progress Note Date Seen: Dec 15, 2024 Resident Creating Document: NORMAN CHAO RESIDENT Medical Necessity Reason Pt with a Central, PICC or Fol: No Subjective Review of Systems This is a 44-year-old male patient with PMH of hypertension on no medications, history of cocaine use, presented to the ER with a chief complaint of shortness of breaths for the past 2-3 weeks, associated with orthopnea, PND. Also associated with dry cough for the past 3 weeks. Denies chest pain/palpitations. He smokes marijuana daily, this cocaine for the past 5 years quit 2023, drinks occasionally. Has not seen a physician in years, has no PCP. EKG completed shows LVH criteria. Sinus tachycardia. Patient seen and examined at the bedside. Radiology consulted for tunneled IJ, hemodialysis pending. Pending kidney biopsy. Sinus rhythm on monitor Objective vital signs Vital Sign Date Time Temp Pulse Resp B/P (MAP) Pulse Ox O2 Delivery O2 Flow Rate FiO2 12/15/24 10:00 65 148/105 12/15/24 07:44 98.7 15 96 98.7 12/15/24 07:44 Room Air* 0 21 Total Intake and Output 12/14/24 12/14/24 12/15/24 15:00 23:00 07:00 Intake Total 50 ml 650 ml Output Total 1625 ml Balance 50 ml -975 ml medications Current Medications Medications Dose Ordered Sig/Clara Route Start Time Stop Time Status Last Admin Dose Admin Nitroglycerin 0.4 mg Q5MINP PRN SL 12/12/24 19:15 Morphine Sulfate 2 mg Q30M PRN IV 12/12/24 19:15 Temazepam 15 mg QHSP PRN PO 12/12/24 19:45 Ondansetron HCl 4 mg Q4HP PRN IV 12/12/24 19:45 Acetaminophen 650 mg Q6HP PRN PO 12/12/24 19:45 Furosemide 40 mg BIDD IV 12/13/24 14:00 12/14/24 17:56 40 MG Labetalol HCl 400 mg Q12HR PO 12/13/24 15:30 12/14/24 22:22 400 MG Atorvastatin Calcium 40 mg HS PO 12/13/24 22:00 12/14/24 22:20 40 MG Polyethylene Glycol 17 gm DAILYPRN PRN PO 12/14/24 12:45 Ergocalciferol 50,000 unit Q7D PO 12/14/24 16:00 12/14/24 17:57 50,000 UNIT Amlodipine Besylate 10 mg DAILY PO 12/16/24 10:00 Hydralazine HCl 10 mg Q8HR PO 12/15/24 07:45 12/15/24 08:07 10 MG Sevelamer HCl 2,400 mg TIDWM PO 12/15/24 12:00 UNV Multivit/Ca Carb/ B Cmplx/FA/Prenat 1 tab DAILY PO 12/16/24 10:00 UNV Magnesium Sulfate/ Dextrose 100 ml @ 100 mls/hr Q1HR IV 12/15/24 11:00 12/15/24 12:59 UNV Examination Patient lying in bed in the ER, no acute distress General: Well-built, afebrile, palor, mucosae are moist Cardiovascular: Regular S1 and S2. No murmurs, gallops or rubs. No JVD elevation. No pedal edema Respiratory: Bilateral crackles heard on auscultation. Wean off oxygen. Saturating 95 on room air. Abdomen: Soft, nontender, nondistended, normoactive bowel sounds, no rebound tenderness, no organomegaly, no masses Genitourinary: Deferred MSK/skin: Mobilizes 4 limbs. Skin is dry and warm Neurological: No motor, no sensitive deficits, normal speech. Pupils are isocoric and reactive. Psych/Mental Status: A/Ox3 laboratory and microbiology Laboratory Tests 12/15/24 05:38 Test 12/15/24 05:38 Range/Units Serum Glucose 102 74-106 mg/dL Labs and/or images reviewed: Labs reviewed by me, Image(s) reviewed by me Problem List/Assessment/Plan Problem List/Assessment/Plan Sirs secondary to Hypertensive emergency Systolic congestive heart failure exacerbation - newly diagnosed Acute hypoxic respiratory failure secondary to above - resolved NSTEMI, likely type 2 Severe MR History of cocaine use ? Hyper Aldosteronism TTE performed, EF 50% with severe MR. Coordinate with RONEN BNP [address] Started nicardipine drip, target SBP between 140 and 150 Continue labetalol 400 mg p.o. q.12, hydralazine 10mg tid and amlodipine 10mg daily Continue aspirin daily Furosemide 40 mg IV b.i.d. Renin/aldosterone pending Cardiology - At this time, we will recommend aggressive blood pressure control and diuresis as tolerated. The patient will benefit from a repeat transthoracic echocardiogram in the future to reassess mitral valve regurgitation once blood pressure is well controlled. PATRICIO on CKD, now ESRD req HD Secondary hyperparathyroidism Left Renal cyst Renal ultrasound completed, shows Increased echogenicity of bilateral kidneys. Correlate for medical renal disease. Nephrology on board - kidney biopsy, hemodialysis Pending tunneled cath placement Hyperlipidemia Continue atorvastatin 40 mg daily Anemia, likely microcytic Pending stool occult Euthyroid sick syndrome Monitor Hypokalemia Replenish Vitamin-D deficiency Replenish Plan discussed with patient in which all questions have been answered Case discussed With Dr. Vazquez. Plan discussed with: Patient My Orders My Orders Orders - NORAMN CHAO Procedure Category Date Status Time * On Air Director CONS 12/14/24 Transmitted Consult Ergocalciferol PHA 12/14/24 In Process (Vitamin D 50,000 16:00 Hydralazine Hcl PHA 12/15/24 In Process Tablet (Apresoline 07:45 Amlodipine Tablet PHA 12/16/24 Logged (Norvasc Tablet) 10:00 Date of Service: Dec 15, 2024 Billing Provider: ITALO POPE MD Common Visit Codes: [id number] INP/OBS CARE(HIGH) NORMAN CHAO Dec 15, 2024 10:56 ITALO POPE MD Dec 19, 2024 00:06
[2024-12-15 11:45] LABS: % Iron Saturation 17.4 % (20-55)
[2024-12-15] MEDS: fentaNYL CITRATE 100 MCG/2 ML VL ONE (11:47)
[2024-12-15] MEDS: MIDAZOLAM HCL 2MG/2ML 2ml VIAL (1mg/ml) ONE (11:48)
[2024-12-15] MEDS: LIDOCAINE 2%HCL (LOCAL ANESTH.) INJ 20ML MDV ONE (11:48)
[2024-12-15] MEDS: HEPARIN SODIUM (PORCINE) 5000 UNITS/ML 1ML VIAL ONE (11:49)
[2024-12-15] MEDS: SEVELAMER 800 MG TAB PO SCH (12:00)
[2024-12-15] MEDS: ceFAZolin 1GM/50ML 50 ML IV ONE (12:08)
--- NOTE | 2024-12-15 13:26 | DVH ---
PROCEDURE: TUNNELED CENTRAL VENOUS CATHETER PLACEMENT USING FLUOROSCOPY AND ULTRASOUND HISTORY: HD CATH DOCUMENTATION: Informed consent was obtained and a procedural time out was performed. SEDATION: Moderate sedation was utilized during the procedure. The patient received benzodiazepines a nd opioids, the dosing of which was documented in the patient s permanent medical record. Pre-sedatio n history and evaluation revealed no contraindications to sedation. The patient s level of consciousn ess and physiologic status was monitored continuously by the physician and nursing staff throughout t he procedure. Total intra-service moderate sedation time was 30 minutes. FLUORO: 1 minutes, DAP: 2 mGy TECHNIQUE: The skin over the RIGHT internal jugular vein and chest was sterilely prepped, draped and anesthetized with 1% lidocaine with epinephrine. The vein was accessed with a 21-gauge needle under u ltrasound guidance with an image archived in the PACS. A guidewire was then passed into the central v eins under fluoroscopy. The subcutaneous tunnel was anesthetized with 1% lidocaine and the catheter w as tunneled to the venous entry site, cut to the appropriate length, and inserted through a peel away sheath. A final radiograph was obtained, the catheter was flushed and secured in place, and sterile dressings were applied. Procedural physician complied with all CLIP criteria, including preprocedural hand hygiene and use of maximum sterile barriers including hat, gown, sterile gloves, mask, and head to toe drape. The neck and chest were prepped with chlorhexidine solution and draped in the usual sterile fashion. The prep solution was allowed to dry prior to puncture. FINDINGS: Ultrasound demonstrates a patent RIGHT internal jugular vein. The tip of the catheter was p laced near the cavoatrial junction. No complications are identified. IMPRESSION: SUCCESSFUL 14.5 x 23 cm YORUBA DUAL-LUMEN POWER INJECTABLE TUNNELED CENTRAL VENOUS CATHETER PLACEMEN T. THE CATHETER IS READY FOR IMMEDIATE USE.
[2024-12-15 14:07] LABS: Cytoplasmic (C-ANCA) <1:20 titer (Neg:<1:20); Perinuclear (P-ANCA) <1:20 titer (Neg:<1:20)
[2024-12-15] MEDS: MAGNESIUM SULFATE 1GM/100ML 100 ML IV SCH (14:47)
[2024-12-15 15:07] LABS: Antimyeloperoxidase (MPO) Ab <0.2 units (0.0-0.9); Antiproteinase 3 (PR-3) Ab <0.2 units (0.0-0.9)
[2024-12-15] MEDS: SODIUM CHL 0.9% 1000 ML BAG XX ONE (17:22)
[2024-12-15] MEDS: EPOETIN ALFA-EPBX 10,000 UNIT/1ML VIAL SC ONE (22:02)
[2024-12-15] MEDS: TEMAZEPAM 15 MG CAP PO PRN (22:03)
[2024-12-16] VITALS (7 sets, daily range): BP systolic 118–167; BP diastolic 81–118; PULSE 81–98; RESP 16–19; TEMP 97.5–98.4; O2SAT 94–97
[2024-12-16 05:33] LABS: Eosinophils # (auto) 0.2 10 ^3/uL (0-0.8); Hemoglobin 8.1 g/dL (13.5-17.5); Monocytes # (auto) 0.6 10 ^3/uL (0-1.3); Nucleated Red Blood Cells % 0.1 %
[2024-12-16 05:36] LABS: Basophils # (auto) 0.1 10 ^3/uL (0-0.2); Basophils % (auto) 1.1 % (0.0-2.0); Eosinophils % (auto) 2.7 % (0.0-7.0); Hematocrit 23.2 % (41.0-53.0); Lymphocytes % (auto) 14.8 % (10.0-50.0); Mean Corpuscular Hemoglobin 28.7 pg (28.0-32.0); Mean Corpuscular Hgb Conc. 34.9 g/dL (32.0-36.0); Mean Corpuscular Volume 82.3 fL (80.0-100.0); Monocytes % (auto) 8.8 % (0.0-12.0); Neutrophils # (auto) 5.1 10 ^3/uL (1.6-8.6); Neutrophils % (auto) 72.6 % (37.0-80.0); Platelet Count (auto) 247 10^3/uL (140-450); Red Blood Cells 2.82 10^6/uL (4.5-5.90); Red Cell Distribution Width 14.4 % (11.8-14.3)
[2024-12-16 05:41] LABS: Chloride 103 mmol/L (98-107); Sodium 140 mmol/L (136-145)
[2024-12-16 05:42] LABS: Anion Gap 14 (5-15); Calcium 9.3 mg/dL (8.7-10.4); Carbon Dioxide 23 mmol/L (20-31)
[2024-12-16 05:47] LABS: BUN/Creatinine Ratio 9.3 (10.0-20.0); Glucose 97 mg/dL (74-106)
[2024-12-16 06:25] LABS: Blood Urea Nitrogen 54 mg/dL (9-23); Potassium 3.3 mmol/L (3.5-5.1)
[2024-12-16] MEDS: B-COMPLEX W/ C & FOLIC ACID(NEPHROVITE TAB) PO SCH (08:41)
[2024-12-16] MEDS: NIFEdipine ER 30 MG TAB PO SCH (08:42)
[2024-12-16] MEDS: SODIUM CHL 0.9% 1000 ML BAG XX ONE (09:00)
[2024-12-16] MEDS ORDERED: amLODIPine BESYLATE 5 MG TAB PO SCH (10:00)
--- NOTE | 2024-12-16 11:23 | DVHPNRES ---
Progress Note Date Seen: Dec 16, 2024 Resident Creating Document: NORMAN CHAO RESIDENT Medical Necessity Reason Pt with a Central, PICC or Fol: No Subjective Review of Systems This is a 44-year-old male patient with PMH of hypertension on no medications, history of cocaine use, presented to the ER with a chief complaint of shortness of breaths for the past 2-3 weeks, associated with orthopnea, PND. Also associated with dry cough for the past 3 weeks. Denies chest pain/palpitations. He smokes marijuana daily, this cocaine for the past 5 years quit 2023, drinks occasionally. Has not seen a physician in years, has no PCP. EKG completed shows LVH criteria. Sinus tachycardia. 12/15 - Patient seen and examined at the bedside. Radiology consulted for tunneled IJ, hemodialysis pending. Pending kidney biopsy. Sinus rhythm on monitor. Underwent hemodialysis, 2 L taken out, aspirin discontinued 12/16 - patient seen and examined at the bedside. Reports no active complaint. Hemodialysis undergoing. family at bedside. Liver biopsy 12/19 Objective vital signs Vital Sign Date Time Temp Pulse Resp B/P (MAP) Pulse Ox O2 Delivery O2 Flow Rate FiO2 12/16/24 09:00 97.9 86 16 148/99 (115) 97 97.9 12/15/24 20:00 Room Air* 0 21 Total Intake and Output 12/15/24 12/15/24 12/16/24 15:00 23:00 07:00 Intake Total 800 ml 150 ml Output Total 650 ml 600 ml Balance 150 ml -450 ml medications Current Medications Medications Dose Ordered Sig/Clara Route Start Time Stop Time Status Last Admin Dose Admin Nitroglycerin 0.4 mg Q5MINP PRN SL 12/12/24 19:15 Morphine Sulfate 2 mg Q30M PRN IV 12/12/24 19:15 Temazepam 15 mg QHSP PRN PO 12/12/24 19:45 12/15/24 22:03 15 MG Ondansetron HCl 4 mg Q4HP PRN IV 12/12/24 19:45 Acetaminophen 650 mg Q6HP PRN PO 12/12/24 19:45 Furosemide 40 mg BIDD IV 12/13/24 14:00 12/16/24 05:52 40 MG Labetalol HCl 400 mg Q12HR PO 12/13/24 15:30 12/15/24 22:03 400 MG Atorvastatin Calcium 40 mg HS PO 12/13/24 22:00 12/15/24 22:02 40 MG Polyethylene Glycol 17 gm DAILYPRN PRN PO 12/14/24 12:45 Ergocalciferol 50,000 unit Q7D PO 12/14/24 16:00 12/14/24 17:57 50,000 UNIT Sevelamer HCl 2,400 mg TIDWM PO 12/15/24 12:00 Multivit/Ca Carb/ B Cmplx/FA/Prenat 1 tab DAILY PO 12/16/24 10:00 Nifedipine 60 mg DAILY PO 12/16/24 10:00 Examination Patient lying in bed in the ER, no acute distress. Patient has a right IJ tunneled cath General: Well-built, afebrile, palor, mucosae are moist Cardiovascular: Regular S1 and S2. No murmurs, gallops or rubs. No JVD elevation. No pedal edema Respiratory: Bilateral crackles heard on auscultation. Wean off oxygen. Saturating 95 on room air. Abdomen: Soft, nontender, nondistended, normoactive bowel sounds, no rebound tenderness, no organomegaly, no masses Genitourinary: Deferred MSK/skin: Mobilizes 4 limbs. Skin is dry and warm Neurological: No motor, no sensitive deficits, normal speech. Pupils are isocoric and reactive. Psych/Mental Status: A/Ox4 laboratory and microbiology Laboratory Tests 12/16/24 05:11 Test 12/16/24 05:11 Range/Units Serum Glucose 97 74-106 mg/dL Microbiology Date/Time Source Procedure Growth Status 12/14/24 17:17 Nose MRSA Screen - Final Complete Labs and/or images reviewed: Labs reviewed by me, Image(s) reviewed by me Problem List/Assessment/Plan Problem List/Assessment/Plan Sirs secondary to Hypertensive emergency Systolic congestive heart failure exacerbation - newly diagnosed Acute hypoxic respiratory failure secondary to above - resolved NSTEMI, likely type 2 Severe MR History of cocaine use ? Hyper Aldosteronism TTE performed, EF 50% with severe MR. Coordinate with RONEN BNP [address] Started nicardipine drip, target SBP between 140 and 150 Continue labetalol 400 mg p.o. q.12, hydralazine 10mg tid and amlodipine 10mg daily Continue aspirin daily Furosemide 40 mg IV b.i.d. Renin/aldosterone pending Cardiology - At this time, we will recommend aggressive blood pressure control and diuresis as tolerated. The patient will benefit from a repeat transthoracic echocardiogram in the future to reassess mitral valve regurgitation once blood pressure is well controlled. PATRICIO on CKD, now ESRD req HD Secondary hyperparathyroidism Left Renal cyst Renal ultrasound completed, shows Increased echogenicity of bilateral kidneys. Correlate for medical renal disease. Nephrology on board - kidney biopsy 12/19, hemodialysis 12/15 and 12/16 Tunneled cath placed 12/15 Hyperlipidemia Continue atorvastatin 40 mg daily Anemia, likely microcytic Pending stool occult Euthyroid sick syndrome Monitor Hypokalemia Replenish Vitamin-D deficiency Replenish Plan discussed with patient in which all questions have been answered Case discussed With Dr. Vazquez. Pending kidney biopsy 12/19, aspirin discontinued 12/14 Plan discussed with: Patient My Orders My Orders Orders - NORMAN CHAO Procedure Category Date Status Time Nifedipine Er PHA 12/16/24 In Process (Procardia Xl 10:00 Insertion Of Venous XY 12/15/24 Resulted Cath 12:26 Date of Service: Dec 16, 2024 Billing Provider: ITALO POPE MD Common Visit Codes: [id number] INP/OBS CARE(HIGH) NORMAN CHAO Dec 16, 2024 11:23 ITALO POPE MD Dec 19, 2024 00:12
[2024-12-16] MEDS: POTASSIUM EFFERVESENT TAB 25 MEQ PO ONE (12:34)
--- NOTE | 2024-12-16 13:49 | DVHPN2 ---
Progress Note Date Seen: Dec 16, 2024 Medical Necessity Reason Pt with a Central, PICC or Fol: No Subjective Review of Systems No new complaints. Reports he tolerated dialysis well today. Patient reports: No new complaints, Feels better Objective vital signs Vital Sign Date Time Temp Pulse Resp B/P (MAP) Pulse Ox O2 Delivery O2 Flow Rate FiO2 12/16/24 12:56 97.5 86 18 125/95 (105) 96 97.5 12/16/24 08:00 Room Air* 0 21 Total Intake and Output 12/15/24 12/15/24 12/16/24 15:00 23:00 07:00 Intake Total 800 ml 150 ml Output Total 650 ml 600 ml Balance 150 ml -450 ml medications Current Medications Medications Dose Ordered Sig/Clara Route Start Time Stop Time Status Last Admin Dose Admin Nitroglycerin 0.4 mg Q5MINP PRN SL 12/12/24 19:15 Morphine Sulfate 2 mg Q30M PRN IV 12/12/24 19:15 Temazepam 15 mg QHSP PRN PO 12/12/24 19:45 12/15/24 22:03 15 MG Ondansetron HCl 4 mg Q4HP PRN IV 12/12/24 19:45 Acetaminophen 650 mg Q6HP PRN PO 12/12/24 19:45 Furosemide 40 mg BIDD IV 12/13/24 14:00 12/16/24 05:52 40 MG Labetalol HCl 400 mg Q12HR PO 12/13/24 15:30 12/15/24 22:03 400 MG Atorvastatin Calcium 40 mg HS PO 12/13/24 22:00 12/15/24 22:02 40 MG Polyethylene Glycol 17 gm DAILYPRN PRN PO 12/14/24 12:45 Ergocalciferol 50,000 unit Q7D PO 12/14/24 16:00 12/14/24 17:57 50,000 UNIT Sevelamer HCl 2,400 mg TIDWM PO 12/15/24 12:00 12/16/24 12:35 2,400 MG Multivit/Ca Carb/ B Cmplx/FA/Prenat 1 tab DAILY PO 12/16/24 10:00 Nifedipine 60 mg DAILY PO 12/16/24 10:00 Examination Gen: Patient appears stated age. In no acute distress. Pulm: Bilateral air entry no wheezes, rhonchi or rales. CVS: RRR, Normal S1 and S2 Ext: No edema Neuro: AOx4. laboratory and microbiology Laboratory Tests 12/16/24 05:11 Test 12/16/24 05:11 Range/Units Serum Glucose 97 74-106 mg/dL Microbiology Date/Time Source Procedure Growth Status 12/14/24 17:17 Nose MRSA Screen - Final Complete Labs and/or images reviewed: Labs reviewed by me Problem List/Assessment/Plan Problem List/Assessment/Plan Acute kidney injury superimposed Chronic Kidney Disease secondary hemodynamic mediated now end-stage renal disease requiring hemodialysis Hypertensive urgency, improved Hypokalemia NSTEMI Congestive heart failure, Diastolic dysfunction Anemia of chronic kidney disease Secondary hyperparathyroidism Vitamin-D deficiency Recommendations Hemodialysis tomorrow Strict I&Os Discontinue aspirin for five days before kidney biopsy Renvela 2400 mg p.o. t.i.d. with meals Ergocalciferol 61541 units p.o. q.week Renal diet Social service for outpatient hemodialysis chair time We will continue to follow Case discussed with Dr. Robles Plan discussed with: Patient, Other (Dr. Alvarado Robles) MEGHAN TIPTON [employer] Dec 16, 2024 13:49
[2024-12-16] MEDS: EPOETIN ALFA-EPBX 10,000 UNIT/1ML VIAL SC ONE (21:00)
[2024-12-17] VITALS (7 sets, daily range): BP systolic 121–148; BP diastolic 75–102; PULSE 70–98; RESP 16–20; TEMP 97.6–99.6; O2SAT 92–99
[2024-12-17 03:07] LABS: Renin Activity 9.2 ng/mL/hr (.)
[2024-12-17 07:45] LABS: Chloride 101 mmol/L (98-107); Potassium 3.6 mmol/L (3.5-5.1); Sodium 138 mmol/L (136-145)
[2024-12-17 07:46] LABS: Anion Gap 12 (5-15); Calcium 9.4 mg/dL (8.7-10.4); Carbon Dioxide 25 mmol/L (20-31)
[2024-12-17 07:51] LABS: BUN/Creatinine Ratio 7.9 (10.0-20.0); Glucose 103 mg/dL (74-106)
[2024-12-17 07:52] LABS: Blood Urea Nitrogen 43 mg/dL (9-23)
--- NOTE | 2024-12-17 13:09 | DVHPN2 ---
Progress Note Date Seen: Dec 17, 2024 Medical Necessity Reason Pt with a Central, PICC or Fol: No Subjective Patient reports: No new complaints Objective vital signs Vital Sign Date Time Temp Pulse Resp B/P (MAP) Pulse Ox O2 Delivery O2 Flow Rate FiO2 12/17/24 10:43 87 140/98 12/17/24 08:54 97.6 18 96 97.6 12/17/24 08:00 Room Air* 0 21 Total Intake and Output 12/16/24 12/16/24 12/17/24 15:00 23:00 07:00 Intake Total 220 ml 200 ml 500 ml Balance 220 ml 200 ml 500 ml medications Current Medications Medications Dose Ordered Sig/Clara Route Start Time Stop Time Status Last Admin Dose Admin Nitroglycerin 0.4 mg Q5MINP PRN SL 12/12/24 19:15 Morphine Sulfate 2 mg Q30M PRN IV 12/12/24 19:15 Temazepam 15 mg QHSP PRN PO 12/12/24 19:45 12/15/24 22:03 15 MG Ondansetron HCl 4 mg Q4HP PRN IV 12/12/24 19:45 Acetaminophen 650 mg Q6HP PRN PO 12/12/24 19:45 Furosemide 40 mg BIDD IV 12/13/24 14:00 12/17/24 05:33 40 MG Labetalol HCl 400 mg Q12HR PO 12/13/24 15:30 12/17/24 09:43 400 MG Atorvastatin Calcium 40 mg HS PO 12/13/24 22:00 12/16/24 21:36 40 MG Polyethylene Glycol 17 gm DAILYPRN PRN PO 12/14/24 12:45 Ergocalciferol 50,000 unit Q7D PO 12/14/24 16:00 12/14/24 17:57 50,000 UNIT Sevelamer HCl 2,400 mg TIDWM PO 12/15/24 12:00 12/17/24 12:50 2,400 MG Multivit/Ca Carb/ B Cmplx/FA/Prenat 1 tab DAILY PO 12/16/24 10:00 12/17/24 09:42 1 TAB Nifedipine 60 mg DAILY PO 12/16/24 10:00 12/17/24 09:43 60 MG Examination Gen: Patient appears stated age. In no acute distress. Pulm: Bilateral air entry no wheezes, rhonchi or rales. CVS: RRR, Normal S1 and S2 Ext: No edema Neuro: AOx4. laboratory and microbiology Laboratory Tests 12/17/24 06:34 12/16/24 05:11 Test 12/17/24 06:34 Range/Units Serum Glucose 103 74-106 mg/dL Microbiology Date/Time Source Procedure Growth Status 12/14/24 17:17 Nose MRSA Screen - Final Complete Labs and/or images reviewed: Labs reviewed by me Problem List/Assessment/Plan Problem List/Assessment/Plan Acute kidney injury superimposed Chronic Kidney Disease secondary hemodynamic mediated now end-stage renal disease requiring hemodialysis Hypertensive urgency, improved Hypokalemia-resolved NSTEMI Congestive heart failure, Diastolic dysfunction Anemia of chronic kidney disease Secondary hyperparathyroidism Vitamin-D deficiency Recommendations Hemodialysis today Continue strict I&Os Discontinue aspirin for five days before kidney biopsy Renvela 2400 mg p.o. t.i.d. with meals Ergocalciferol 61266 units p.o. q.week Renal diet Social service for outpatient hemodialysis chair time-pending We will continue to follow Case discussed with Dr. Robles Plan discussed with: Patient MEGHAN TIPTON PHONG Dec 17, 2024 13:09
--- NOTE | 2024-12-17 13:55 | DVHPNRES ---
Progress Note Date Seen: Dec 17, 2024 Resident Creating Document: GARY BAIN RESIDENT Medical Necessity Reason Pt with a Central, PICC or Fol: No Subjective Review of Systems This is a 44-year-old male patient with PMH of hypertension on no medications, history of cocaine use, presented to the ER with a chief complaint of shortness of breaths for the past 2-3 weeks, associated with orthopnea, PND. Also associated with dry cough for the past 3 weeks. Denies chest pain/palpitations. He smokes marijuana daily, this cocaine for the past 5 years quit 2023, drinks occasionally. Has not seen a physician in years, has no PCP. EKG completed shows LVH criteria. Sinus tachycardia. 12/15 - Patient seen and examined at the bedside. Radiology consulted for tunneled IJ, hemodialysis pending. Pending kidney biopsy. Sinus rhythm on monitor. Underwent hemodialysis, 2 L taken out, aspirin discontinued 12/16 - patient seen and examined at the bedside. Reports no active complaint. Hemodialysis undergoing. family at bedside. kidney biopsy 12/1912/17/2024--patient is seen today for clinical evaluation. Labs and chart reviewed. Patient reported doing well. Denied any complaint. Patient is due for kidney biopsy on 12/19/2024. Objective vital signs Vital Sign Date Time Temp Pulse Resp B/P (MAP) Pulse Ox O2 Delivery O2 Flow Rate FiO2 12/17/24 13:24 98.0 87 16 140/98 (112) 98 98.0 12/17/24 08:00 Room Air* 0 21 Total Intake and Output 12/16/24 12/16/24 12/17/24 15:00 23:00 07:00 Intake Total 220 ml 200 ml 500 ml Balance 220 ml 200 ml 500 ml medications Current Medications Medications Dose Ordered Sig/Clara Route Start Time Stop Time Status Last Admin Dose Admin Nitroglycerin 0.4 mg Q5MINP PRN SL 12/12/24 19:15 Morphine Sulfate 2 mg Q30M PRN IV 12/12/24 19:15 Temazepam 15 mg QHSP PRN PO 12/12/24 19:45 12/15/24 22:03 15 MG Ondansetron HCl 4 mg Q4HP PRN IV 12/12/24 19:45 Acetaminophen 650 mg Q6HP PRN PO 12/12/24 19:45 Furosemide 40 mg BIDD IV 12/13/24 14:00 12/17/24 05:33 40 MG Labetalol HCl 400 mg Q12HR PO 12/13/24 15:30 12/17/24 09:43 400 MG Atorvastatin Calcium 40 mg HS PO 12/13/24 22:00 12/16/24 21:36 40 MG Polyethylene Glycol 17 gm DAILYPRN PRN PO 12/14/24 12:45 Ergocalciferol 50,000 unit Q7D PO 12/14/24 16:00 12/14/24 17:57 50,000 UNIT Sevelamer HCl 2,400 mg TIDWM PO 12/15/24 12:00 12/17/24 12:50 2,400 MG Multivit/Ca Carb/ B Cmplx/FA/Prenat 1 tab DAILY PO 12/16/24 10:00 12/17/24 09:42 1 TAB Nifedipine 60 mg DAILY PO 12/16/24 10:00 12/17/24 09:43 60 MG Examination General: Well-built, afebrile, palor, mucosae are moist Cardiovascular: Regular S1 and S2. No murmurs, gallops or rubs. No JVD elevation. No pedal edema Respiratory: Bilateral crackles heard on auscultation. Wean off oxygen. Saturating 95 on room air. Abdomen: Soft, nontender, nondistended, normoactive bowel sounds, no rebound tenderness, no organomegaly, no masses Genitourinary: Deferred MSK/skin: Mobilizes 4 limbs. Skin is dry and warm Neurological: No motor, no sensitive deficits, normal speech. Pupils are isocoric and reactive. Psych/Mental Status: A/Ox4 laboratory and microbiology Laboratory Tests 12/17/24 06:34 12/16/24 05:11 Test 12/17/24 06:34 Range/Units Serum Glucose 103 74-106 mg/dL Microbiology Date/Time Source Procedure Growth Status 12/14/24 17:17 Nose MRSA Screen - Final Complete Problem List/Assessment/Plan Problem List/Assessment/Plan Problem List/Assessment/Plan-patient was admitted to the hospital due to shortness of breaths. Patient was found to have ESRD with congestive heart failure. On hemodialysis. Patient is due for kidney biopsy on 12/19/2023. Sirs secondary to Hypertensive emergency Systolic congestive heart failure exacerbation - newly diagnosed Acute hypoxic respiratory failure secondary to above - resolved NSTEMI, likely type 2 Severe MR History of cocaine use ? Hyper Aldosteronism TTE performed, EF 50% with severe MR. Coordinate with RONEN BNP [address] Started nicardipine drip, target SBP between 140 and 150 Continue labetalol 400 mg p.o. q.12, hydralazine 10mg tid and amlodipine 10mg daily Continue aspirin daily Furosemide 40 mg IV b.i.d. Renin/aldosterone pending Cardiology - At this time, we will recommend aggressive blood pressure control and diuresis as tolerated. The patient will benefit from a repeat transthoracic echocardiogram in the future to reassess mitral valve regurgitation once blood pressure is well controlled. PATRICIO on CKD, now ESRD req HD Secondary hyperparathyroidism Left Renal cyst Renal ultrasound completed, shows Increased echogenicity of bilateral kidneys. Correlate for medical renal disease. Nephrology on board - kidney biopsy 12/19, hemodialysis 12/15 and 12/16 Tunneled cath placed 12/15 Hyperlipidemia Continue atorvastatin 40 mg daily Anemia, likely microcytic Pending stool occult Euthyroid sick syndrome Monitor Hypokalemia Replenish Vitamin-D deficiency Replenish Plan discussed with patient in which all questions have been answered Case discussed With Dr. Vazquez. Pending kidney biopsy 12/19, aspirin discontinued 12/14 Plan discussed with: Boris Plan discussed with: Patient, Other (RN) Date of Service: Dec 17, 2024 Billing Provider: ITALO POPE MD Common Visit Codes: [id number] INP/OBS CARE(HIGH) GARY BAIN Dec 17, 2024 13:55 ITALO POPE MD Dec 19, 2024 00:20
[2024-12-17] MEDS: SODIUM CHL 0.9% 1000 ML BAG XX ONE (14:30)
[2024-12-18] VITALS (8 sets, daily range): BP systolic 111–127; BP diastolic 76–87; PULSE 76–89; RESP 15–18; TEMP 97.2–99.2; O2SAT 96–98
[2024-12-18 06:37] LABS: Anion Gap 13 (5-15); Carbon Dioxide 26 mmol/L (20-31); Chloride 98 mmol/L (98-107); Sodium 137 mmol/L (136-145)
[2024-12-18 06:38] LABS: Calcium 9.5 mg/dL (8.7-10.4)
[2024-12-18 06:43] LABS: BUN/Creatinine Ratio 6.9 (10.0-20.0); Glucose 102 mg/dL (74-106)
[2024-12-18 06:48] LABS: Blood Urea Nitrogen 38 mg/dL (9-23)
--- NOTE | 2024-12-18 12:24 | DVHPNRES ---
Progress Note Date Seen: Dec 18, 2024 Resident Creating Document: NORMAN CHAO RESIDENT Medical Necessity Reason Pt with a Central, PICC or Fol: No Subjective Review of Systems This is a 44-year-old male patient with PMH of hypertension on no medications, history of cocaine use, presented to the ER with a chief complaint of shortness of breaths for the past 2-3 weeks, associated with orthopnea, PND. Also associated with dry cough for the past 3 weeks. Denies chest pain/palpitations. He smokes marijuana daily, this cocaine for the past 5 years quit 2023, drinks occasionally. Has not seen a physician in years, has no PCP. EKG completed shows LVH criteria. Sinus tachycardia. 12/15 - Patient seen and examined at the bedside. Radiology consulted for tunneled IJ, hemodialysis pending. Pending kidney biopsy. Sinus rhythm on monitor. Underwent hemodialysis, 2 L taken out, aspirin discontinued 12/16 - patient seen and examined at the bedside. Reports no active complaint. Hemodialysis undergoing. family at bedside. Liver biopsy 12/19 12/18 - patient seen examined at bedside, no acute distress. Hemodialysis yesterday. NPO starting midnight for liver biopsy. Objective vital signs Vital Sign Date Time Temp Pulse Resp B/P (MAP) Pulse Ox O2 Delivery O2 Flow Rate FiO2 12/18/24 10:47 83 129/87 12/18/24 09:00 97.7 17 98 97.7 12/17/24 20:00 Room Air* 0 21 Total Intake and Output 12/17/24 12/17/24 12/18/24 15:00 23:00 07:00 Intake Total 450 ml 970 ml Balance 450 ml 970 ml medications Current Medications Medications Dose Ordered Sig/Clara Route Start Time Stop Time Status Last Admin Dose Admin Nitroglycerin 0.4 mg Q5MINP PRN SL 12/12/24 19:15 Morphine Sulfate 2 mg Q30M PRN IV 12/12/24 19:15 Temazepam 15 mg QHSP PRN PO 12/12/24 19:45 12/15/24 22:03 15 MG Ondansetron HCl 4 mg Q4HP PRN IV 12/12/24 19:45 Acetaminophen 650 mg Q6HP PRN PO 12/12/24 19:45 Furosemide 40 mg BIDD IV 12/13/24 14:00 12/18/24 05:50 40 MG Labetalol HCl 400 mg Q12HR PO 12/13/24 15:30 12/18/24 10:47 400 MG Atorvastatin Calcium 40 mg HS PO 12/13/24 22:00 12/17/24 21:56 40 MG Polyethylene Glycol 17 gm DAILYPRN PRN PO 12/14/24 12:45 Ergocalciferol 50,000 unit Q7D PO 12/14/24 16:00 12/14/24 17:57 50,000 UNIT Sevelamer HCl 2,400 mg TIDWM PO 12/15/24 12:00 12/18/24 08:17 2,400 MG Multivit/Ca Carb/ B Cmplx/FA/Prenat 1 tab DAILY PO 12/16/24 10:00 12/18/24 10:47 1 TAB Nifedipine 60 mg DAILY PO 12/16/24 10:00 12/18/24 10:46 60 MG Examination Patient lying in bed in the ER, no acute distress. Patient has a right IJ tunneled cath General: Well-built, afebrile, palor, mucosae are moist Cardiovascular: Regular S1 and S2. No murmurs, gallops or rubs. No JVD elevation. No pedal edema Respiratory: Bilateral crackles heard on auscultation. Wean off oxygen. Saturating 95 on room air. Abdomen: Soft, nontender, nondistended, normoactive bowel sounds, no rebound tenderness, no organomegaly, no masses Genitourinary: Deferred MSK/skin: Mobilizes 4 limbs. Skin is dry and warm Neurological: No motor, no sensitive deficits, normal speech. Pupils are isocoric and reactive. Psych/Mental Status: A/Ox4 laboratory and microbiology Laboratory Tests 12/18/24 05:42 12/16/24 05:11 Test 12/18/24 05:42 Range/Units Serum Glucose 102 74-106 mg/dL Microbiology Date/Time Source Procedure Growth Status 12/14/24 17:17 Nose MRSA Screen - Final Complete Labs and/or images reviewed: Labs reviewed by me, Image(s) reviewed by me Problem List/Assessment/Plan Problem List/Assessment/Plan Sirs secondary to Hypertensive emergency Systolic congestive heart failure exacerbation - newly diagnosed Acute hypoxic respiratory failure secondary to above - resolved NSTEMI, likely type 2 Severe MR History of cocaine use ? Hyper Aldosteronism TTE performed, EF 50% with severe MR. Coordinate with RONEN BNP [address] Started nicardipine drip, target SBP between 140 and 150 Continue labetalol 400 mg p.o. q.12, hydralazine 10mg tid and amlodipine 10mg daily Continue aspirin daily Furosemide 40 mg IV b.i.d. Renin/aldosterone pending Cardiology - At this time, we will recommend aggressive blood pressure control and diuresis as tolerated. The patient will benefit from a repeat transthoracic echocardiogram in the future to reassess mitral valve regurgitation once blood pressure is well controlled. PATRICIO on CKD, now ESRD req HD Secondary hyperparathyroidism Left Renal cyst Renal ultrasound completed, shows Increased echogenicity of bilateral kidneys. Correlate for medical renal disease. Nephrology on board - kidney biopsy 12/19, hemodialysis 12/15 and 12/16 and 12/17 Tunneled cath placed 12/15 Hyperlipidemia Continue atorvastatin 40 mg daily Anemia, likely secondary to ESRD Monitor Euthyroid sick syndrome Monitor Hypokalemia Replenish Vitamin-D deficiency Replenish Plan discussed with patient in which all questions have been answered Case discussed With Dr. Vazquez. Pending kidney biopsy 12/19, aspirin discontinued 12/14. NPO starting midnight Plan discussed with: Patient Date of Service: Dec 18, 2024 Billing Provider: ITALO POPE MD Common Visit Codes: [id number] INP/OBS CARE(HIGH) NORMAN CHAO RESIDENT Dec 18, 2024 12:24 ITALO POPE MD Dec 19, 2024 00:20
--- NOTE | 2024-12-18 13:03 | DVHPN2 ---
Progress Note Date Seen: Dec 18, 2024 Medical Necessity Reason Pt with a Central, PICC or Fol: No Subjective Review of Systems No new complaints. Tolerated dialysis well yesterday. Patient reports: No new complaints, Feels better Objective vital signs Vital Sign Date Time Temp Pulse Resp B/P (MAP) Pulse Ox O2 Delivery O2 Flow Rate FiO2 12/18/24 10:47 83 129/87 12/18/24 09:00 97.7 17 98 97.7 12/17/24 20:00 Room Air* 0 21 Total Intake and Output 12/17/24 12/17/24 12/18/24 15:00 23:00 07:00 Intake Total 450 ml 970 ml Balance 450 ml 970 ml medications Current Medications Medications Dose Ordered Sig/Clara Route Start Time Stop Time Status Last Admin Dose Admin Nitroglycerin 0.4 mg Q5MINP PRN SL 12/12/24 19:15 Morphine Sulfate 2 mg Q30M PRN IV 12/12/24 19:15 Temazepam 15 mg QHSP PRN PO 12/12/24 19:45 12/15/24 22:03 15 MG Ondansetron HCl 4 mg Q4HP PRN IV 12/12/24 19:45 Acetaminophen 650 mg Q6HP PRN PO 12/12/24 19:45 Furosemide 40 mg BIDD IV 12/13/24 14:00 12/18/24 05:50 40 MG Labetalol HCl 400 mg Q12HR PO 12/13/24 15:30 12/18/24 10:47 400 MG Atorvastatin Calcium 40 mg HS PO 12/13/24 22:00 12/17/24 21:56 40 MG Polyethylene Glycol 17 gm DAILYPRN PRN PO 12/14/24 12:45 Ergocalciferol 50,000 unit Q7D PO 12/14/24 16:00 12/14/24 17:57 50,000 UNIT Sevelamer HCl 2,400 mg TIDWM PO 12/15/24 12:00 12/18/24 12:11 2,400 MG Multivit/Ca Carb/ B Cmplx/FA/Prenat 1 tab DAILY PO 12/16/24 10:00 12/18/24 10:47 1 TAB Nifedipine 60 mg DAILY PO 12/16/24 10:00 12/18/24 10:46 60 MG Examination Gen: Patient appears stated age. In no acute distress. Pulm: Bilateral air entry no wheezes, rhonchi or rales. CVS: RRR, Normal S1 and S2 Ext: No edema Neuro: AOx4. laboratory and microbiology Laboratory Tests 12/18/24 05:42 12/16/24 05:11 Test 12/18/24 05:42 Range/Units Serum Glucose 102 74-106 mg/dL Microbiology Date/Time Source Procedure Growth Status 12/14/24 17:17 Nose MRSA Screen - Final Complete Problem List/Assessment/Plan Problem List/Assessment/Plan Acute kidney injury superimposed Chronic Kidney Disease secondary hemodynamic mediated now end-stage renal disease requiring hemodialysis-last dialysis 12/17 Hypertensive urgency, improved Hypokalemia-resolved NSTEMI Congestive heart failure, Diastolic dysfunction Anemia of chronic kidney disease Secondary hyperparathyroidism Vitamin-D deficiency Recommendations Chemistry panel Continue strict I&Os Discontinue aspirin for five days before kidney biopsy Renvela 2400 mg p.o. t.i.d. with meals Ergocalciferol 26609 units p.o. q.week Renal diet Social service for outpatient hemodialysis chair time-pending We will continue to follow Case discussed with Dr. Robles Plan discussed with: Patient, Spouse MEGHAN TIPTON PHONG Dec 18, 2024 13:03
[2024-12-19] VITALS (8 sets, daily range): BP systolic 124–149; BP diastolic 80–107; PULSE 82–89; RESP 16–20; TEMP 97.4–98.1; O2SAT 95–98
[2024-12-19 06:49] LABS: Basophils # (auto) 0.1 10 ^3/uL (0-0.2); Basophils % (auto) 0.8 % (0.0-2.0); Eosinophils # (auto) 0.3 10 ^3/uL (0-0.8); Eosinophils % (auto) 3.7 % (0.0-7.0); Hematocrit 25.3 % (41.0-53.0); Hemoglobin 8.7 g/dL (13.5-17.5); Lymphocytes # (auto) 1.5 10 ^3/uL (0.4-5.4); Lymphocytes % (auto) 18.6 % (10.0-50.0); Mean Corpuscular Hemoglobin 28.9 pg (28.0-32.0); Mean Corpuscular Hgb Conc. 34.6 g/dL (32.0-36.0); Mean Corpuscular Volume 83.6 fL (80.0-100.0); Monocytes # (auto) 0.6 10 ^3/uL (0-1.3); Monocytes % (auto) 7.8 % (0.0-12.0); Neutrophils # (auto) 5.7 10 ^3/uL (1.6-8.6); Neutrophils % (auto) 69.1 % (37.0-80.0); Nucleated Red Blood Cells % 0.1 %; Platelet Count (auto) 249 10^3/uL (140-450); Red Blood Cells 3.03 10^6/uL (4.5-5.90); Red Cell Distribution Width 14.5 % (11.8-14.3); White Blood Cell 8.3 10^3/uL (4.4-10.8)
[2024-12-19 07:05] LABS: Chloride 99 mmol/L (98-107)
[2024-12-19 07:06] LABS: Anion Gap 13 (5-15); Carbon Dioxide 24 mmol/L (20-31)
[2024-12-19 07:07] LABS: Calcium 9.3 mg/dL (8.7-10.4)
[2024-12-19 07:11] LABS: BUN/Creatinine Ratio 6.9 (10.0-20.0); Glucose 100 mg/dL (74-106)
[2024-12-19 07:16] LABS: Blood Urea Nitrogen 47 mg/dL (9-23); Sodium 136 mmol/L (136-145)
[2024-12-19] MEDS ORDERED: EPOETIN ALFA-EPBX 10,000 UNIT/1ML VIAL SC SCH (11:30)
--- NOTE | 2024-12-19 11:37 | DVHPN2 ---
Progress Note Date Seen: Dec 19, 2024 Medical Necessity Reason Pt with a Central, PICC or Fol: No Subjective Review of Systems: HEENT:Normal Objective vital signs Vital Sign Date Time Temp Pulse Resp B/P (MAP) Pulse Ox O2 Delivery O2 Flow Rate FiO2 12/19/24 08:30 97.4 86 16 133/87 (102) 98 97.4 12/19/24 08:15 Room Air* 0 21 Total Intake and Output 12/18/24 12/18/24 12/19/24 15:00 23:00 07:00 Intake Total 100 ml 1000 ml 200 ml Output Total 300 ml Balance 100 ml 700 ml 200 ml medications Current Medications Medications Dose Ordered Sig/Clara Route Start Time Stop Time Status Last Admin Dose Admin Nitroglycerin 0.4 mg Q5MINP PRN SL 12/12/24 19:15 Morphine Sulfate 2 mg Q30M PRN IV 12/12/24 19:15 Temazepam 15 mg QHSP PRN PO 12/12/24 19:45 12/15/24 22:03 15 MG Ondansetron HCl 4 mg Q4HP PRN IV 12/12/24 19:45 Acetaminophen 650 mg Q6HP PRN PO 12/12/24 19:45 Furosemide 40 mg BIDD IV 12/13/24 14:00 12/19/24 05:30 40 MG Labetalol HCl 400 mg Q12HR PO 12/13/24 15:30 12/18/24 21:46 400 MG Atorvastatin Calcium 40 mg HS PO 12/13/24 22:00 12/18/24 21:46 40 MG Polyethylene Glycol 17 gm DAILYPRN PRN PO 12/14/24 12:45 Ergocalciferol 50,000 unit Q7D PO 12/14/24 16:00 12/14/24 17:57 50,000 UNIT Sevelamer HCl 2,400 mg TIDWM PO 12/15/24 12:00 12/18/24 18:02 2,400 MG Multivit/Ca Carb/ B Cmplx/FA/Prenat 1 tab DAILY PO 12/16/24 10:00 12/18/24 10:47 1 TAB Nifedipine 60 mg DAILY PO 12/16/24 10:00 12/18/24 10:46 60 MG Examination: GENERAL:Normal, CVS:Normal, SKIN:Normal laboratory and microbiology Laboratory Tests 12/19/24 06:22 Test 12/19/24 06:22 Range/Units Serum Glucose 100 74-106 mg/dL Microbiology Date/Time Source Procedure Growth Status 12/14/24 17:17 Nose MRSA Screen - Final Complete Problem List/Assessment/Plan Problem List/Assessment/Plan Acute kidney injury requiring dialysis Ckd baseline unknown based on records but high probability of ESRD based on presentation Hypertensive urgency, improved NSTEMI Congestive heart failure, Diastolic dysfunction Anemia of chronic kidney disease Secondary hyperparathyroidism Vitamin-D deficiency HD tomorrow Continue strict I&Os epogen Sub Q MWF will determine tentatively when previously ordered kidney biopsy will be scheduled Renvela 2400 mg p.o. t.i.d. with meals Ergocalciferol 58425 units p.o. q.week Renal diet Social service for outpatient hemodialysis chair time-pending Plan discussed with: Patient Dietary Evaluation Review Comments: 1) Resume renal standard diet when medically feasible 2) Encourage compliance of renal diet, including taking phosphorus binder as directed 3) f/u with outpatient renal RD 4) f/u with outpatient remedial reading teacher Expected Outcomes/Goals: 1) appetite and labs to improve 2) f/u in 3-5 days WILTON MOLINA MD Dec 19, 2024 11:37
--- NOTE | 2024-12-19 14:21 | DVHPNRES ---
Progress Note Date Seen: Dec 19, 2024 Resident Creating Document: NORMAN CHAO RESIDENT Medical Necessity Reason Pt with a Central, PICC or Fol: No Subjective Review of Systems This is a 44-year-old male patient with PMH of hypertension on no medications, history of cocaine use, presented to the ER with a chief complaint of shortness of breaths for the past 2-3 weeks, associated with orthopnea, PND. Also associated with dry cough for the past 3 weeks. Denies chest pain/palpitations. He smokes marijuana daily, this cocaine for the past 5 years quit 2023, drinks occasionally. Has not seen a physician in years, has no PCP. EKG completed shows LVH criteria. Sinus tachycardia. 12/15 - Patient seen and examined at the bedside. Radiology consulted for tunneled IJ, hemodialysis pending. Pending kidney biopsy. Sinus rhythm on monitor. Underwent hemodialysis, 2 L taken out, aspirin discontinued 12/16 - patient seen and examined at the bedside. Reports no active complaint. Hemodialysis undergoing. family at bedside. Kidney biopsy 12/19 12/18 - patient seen examined at bedside, no acute distress. Hemodialysis yesterday. NPO starting midnight for kidney biopsy. 12/19 - no active complaint. Hemodialysis scheduled for tomorrow. Kidney biopsy tomorrow. NPO starting midnight Objective vital signs Vital Sign Date Time Temp Pulse Resp B/P (MAP) Pulse Ox O2 Delivery O2 Flow Rate FiO2 12/19/24 12:37 97.9 83 16 141/96 (111) 97 97.9 12/19/24 08:15 Room Air* 0 21 Total Intake and Output 12/18/24 12/18/24 12/19/24 15:00 23:00 07:00 Intake Total 100 ml 1000 ml 200 ml Output Total 300 ml Balance 100 ml 700 ml 200 ml medications Current Medications Medications Dose Ordered Sig/Clara Route Start Time Stop Time Status Last Admin Dose Admin Nitroglycerin 0.4 mg Q5MINP PRN SL 12/12/24 19:15 Morphine Sulfate 2 mg Q30M PRN IV 12/12/24 19:15 Temazepam 15 mg QHSP PRN PO 12/12/24 19:45 12/15/24 22:03 15 MG Ondansetron HCl 4 mg Q4HP PRN IV 12/12/24 19:45 Acetaminophen 650 mg Q6HP PRN PO 12/12/24 19:45 Furosemide 40 mg BIDD IV 12/13/24 14:00 12/19/24 05:30 40 MG Labetalol HCl 400 mg Q12HR PO 12/13/24 15:30 12/18/24 21:46 400 MG Atorvastatin Calcium 40 mg HS PO 12/13/24 22:00 12/18/24 21:46 40 MG Polyethylene Glycol 17 gm DAILYPRN PRN PO 12/14/24 12:45 Ergocalciferol 50,000 unit Q7D PO 12/14/24 16:00 12/14/24 17:57 50,000 UNIT Sevelamer HCl 2,400 mg TIDWM PO 12/15/24 12:00 12/18/24 18:02 2,400 MG Multivit/Ca Carb/ B Cmplx/FA/Prenat 1 tab DAILY PO 12/16/24 10:00 12/18/24 10:47 1 TAB Nifedipine 60 mg DAILY PO 12/16/24 10:00 12/18/24 10:46 60 MG Epoetin Yariel-epbx 10,000 unit MWF@2100 SC 12/19/24 21:00 Examination Patient lying in bed in the ER, no acute distress. Patient has a right IJ tunneled cath General: Well-built, afebrile, palor, mucosae are moist Cardiovascular: Regular S1 and S2. No murmurs, gallops or rubs. No JVD elevation. No pedal edema Respiratory: Bilateral crackles heard on auscultation. Wean off oxygen. Saturating 95 on room air. Abdomen: Soft, nontender, nondistended, normoactive bowel sounds, no rebound tenderness, no organomegaly, no masses Genitourinary: Deferred MSK/skin: Mobilizes 4 limbs. Skin is dry and warm Neurological: No motor, no sensitive deficits, normal speech. Pupils are isocoric and reactive. Psych/Mental Status: A/Ox4 laboratory and microbiology Laboratory Tests 12/19/24 06:22 Test 12/19/24 06:22 Range/Units Serum Glucose 100 74-106 mg/dL Microbiology Date/Time Source Procedure Growth Status 12/14/24 17:17 Nose MRSA Screen - Final Complete Labs and/or images reviewed: Labs reviewed by me, Image(s) reviewed by me Problem List/Assessment/Plan Problem List/Assessment/Plan Sirs secondary to Hypertensive emergency Systolic congestive heart failure exacerbation - newly diagnosed Acute hypoxic respiratory failure secondary to above - resolved NSTEMI, likely type 2 Severe MR History of cocaine use ? Hyper Aldosteronism TTE performed, EF 50% with severe MR. Coordinate with RONEN BNP [address] Started nicardipine drip, target SBP between 140 and 150 Continue labetalol 400 mg p.o. q.12, hydralazine 10mg tid and amlodipine 10mg daily Continue aspirin daily Furosemide 40 mg IV b.i.d. Renin activity 9, aldosterone 30 Cardiology - At this time, we will recommend aggressive blood pressure control and diuresis as tolerated. The patient will benefit from a repeat transthoracic echocardiogram in the future to reassess mitral valve regurgitation once blood pressure is well controlled. PATRICIO on CKD, now ESRD req HD Secondary hyperparathyroidism Left Renal cyst Renal ultrasound completed, shows Increased echogenicity of bilateral kidneys. Correlate for medical renal disease. Nephrology on board - kidney biopsy 12/19, hemodialysis 12/15 and 12/16 and 12/17 Tunneled cath placed 12/15 Hyperlipidemia Continue atorvastatin 40 mg daily Anemia, likely secondary to ESRD Monitor Euthyroid sick syndrome Monitor Hypokalemia Replenish Vitamin-D deficiency Replenish Plan discussed with patient in which all questions have been answered Case discussed With Dr. Vazquez. Pending kidney biopsy 12/20, aspirin discontinued 12/14. NPO starting midnight Plan discussed with: Patient, Other (Brother and at bedside) Dietary Evaluation Review Comments: 1) Resume renal standard diet when medically feasible 2) Encourage compliance of renal diet, including taking phosphorus binder as directed 3) f/u with outpatient renal RD 4) f/u with outpatient manager quality improvement Expected Outcomes/Goals: 1) appetite and labs to improve 2) f/u in 3-5 days NORMAN CHAO RESIDENT Dec 19, 2024 14:22
[2024-12-19] MEDS: EPOETIN ALFA-EPBX 10,000 UNIT/1ML VIAL SC SCH (21:10)
[2024-12-20] VITALS (8 sets, daily range): BP systolic 122–153; BP diastolic 89–107; PULSE 74–81; RESP 14–20; TEMP 36.3–36.4; O2SAT 96–98
[2024-12-20 06:52] LABS: Basophils # (auto) 0.1 10 ^3/uL (0-0.2); Basophils % (auto) 0.7 % (0.0-2.0); Eosinophils # (auto) 0.2 10 ^3/uL (0-0.8); Eosinophils % (auto) 3.5 % (0.0-7.0); Hematocrit 25.9 % (41.0-53.0); Hemoglobin 8.8 g/dL (13.5-17.5); Lymphocytes # (auto) 1.2 10 ^3/uL (0.4-5.4); Lymphocytes % (auto) 17.4 % (10.0-50.0); Mean Corpuscular Hemoglobin 28.6 pg (28.0-32.0); Mean Corpuscular Hgb Conc. 33.9 g/dL (32.0-36.0); Mean Corpuscular Volume 84.3 fL (80.0-100.0); Monocytes # (auto) 0.5 10 ^3/uL (0-1.3); Monocytes % (auto) 7.6 % (0.0-12.0); Neutrophils # (auto) 5.1 10 ^3/uL (1.6-8.6); Neutrophils % (auto) 70.8 % (37.0-80.0); Nucleated Red Blood Cells % 0.1 %; Platelet Count (auto) 269 10^3/uL (140-450); Red Blood Cells 3.07 10^6/uL (4.5-5.90); Red Cell Distribution Width 14.5 % (11.8-14.3); White Blood Cell 7.1 10^3/uL (4.4-10.8)
[2024-12-20 07:07] LABS: Anion Gap 13 (5-15); Carbon Dioxide 24 mmol/L (20-31); Chloride 100 mmol/L (98-107); Potassium 4.1 mmol/L (3.5-5.1); Sodium 137 mmol/L (136-145)
[2024-12-20 07:08] LABS: Calcium 9.4 mg/dL (8.7-10.4)
[2024-12-20 07:13] LABS: BUN/Creatinine Ratio 7.2 (10.0-20.0); Glucose 88 mg/dL (74-106)
[2024-12-20 07:15] LABS: Blood Urea Nitrogen 57 mg/dL (9-23)
[2024-12-20 07:35] LABS: Phosphorus 6.7 mg/dL (2.4-5.1)
[2024-12-20] MEDS ORDERED: hydrALAZINE HCL 20 MG/ML VL IV ONE (11:40)
--- NOTE | 2024-12-20 15:14 | DVH ---
US US GUIDANCE FOR NEEDLE PLACEME, HISTORY: KIDNEY BX PROCEDURE: Informed consent was obtained. Limited ultrasound of the right kidney was obtained. The o verlying skin was prepped with chlorhexidine which was allowed to dry and draped in the usual sterile fashion. Time out was performed. The skin and soft tissue were infiltrated with 1% lidocaine, and IV sedation was administered. Under real-time ultrasound guidance, 1 biopsy specimen was obtained using Biopince 18 gauge core biopsy needle. 10 minutes of manual compression was held. Post biopsy scan wa s performed. No immediate complication was noted. SEDATION: Dr. Natty Fonseca was personally responsible for the administration of moderate sedation during the procedure performed, including the use of an independent trained observer who had no other duties during the procedure. The drugs utilized were IV fentanyl and versed (see nursing log for details). The total time of supervision by the attending physician was approximately 30 minutes. FINDINGS: Limited intraprocedural ultrasound demonstrates biopsy needle within the lower renal cortex of right kidney. No significant post procedural hematoma is noted. IMPRESSION: Ultrasound biopsy of the right kidney. Pathology results pending.
[2024-12-20] MEDS: SODIUM CHL 0.9% 1000 ML BAG XX ONE (16:00)
--- NOTE | 2024-12-20 16:18 | DVHDSRES ---
Discharge Summary Date of Admission Resident Creating Document: NORMAN CHAO RESIDENT Dec 12, 2024 at 19:10 Date of Discharge: Dec 20, 2024 Labs/Diagnostic Data: Laboratory Results Test 12/20/24 06:26 12/16/24 05:11 12/15/24 05:38 12/14/24 11:51 White Blood Count 7.1 10^3/uL (4.4-10.8) Red Blood Count 3.07 10^6/uL (4.5-5.90) Hemoglobin 8.8 g/dL (13.5-17.5) Hematocrit 25.9 % (41.0-53.0) Mean Corpuscular Volume 84.3 fL (80.0-100.0) Mean Corpuscular Hemoglobin 28.6 pg (28.0-32.0) Mean Corpuscular Hemoglobin Concent 33.9 g/dL (32.0-36.0) Red Cell Distribution Width 14.5 % (11.8-14.3) Platelet Count 269 10^3/uL (140-450) Mean Platelet Volume 9.4 fL (6.9-10.8) Neutrophils (%) (Auto) 70.8 % (37.0-80.0) Lymphocytes (%) (Auto) 17.4 % (10.0-50.0) Monocytes (%) (Auto) 7.6 % (0.0-12.0) Eosinophils (%) (Auto) 3.5 % (0.0-7.0) Basophils (%) (Auto) 0.7 % (0.0-2.0) Neutrophils # (Auto) 5.1 10 ^3/uL (1.6-8.6) Lymphocytes # (Auto) 1.2 10 ^3/uL (0.4-5.4) Monocytes # (Auto) 0.5 10 ^3/uL (0-1.3) Eosinophils # (Auto) 0.2 10 ^3/uL (0-0.8) Basophils # (Auto) 0.1 10 ^3/uL (0-0.2) Nucleated Red Blood Cells 0.1 % Sodium Level 137 mmol/L (136-145) Potassium Level 4.1 mmol/L (3.5-5.1) Chloride Level 100 mmol/L (98-107) Carbon Dioxide Level 24 mmol/L (20-31) Anion Gap 13 (5-15) Blood Urea Nitrogen 57 mg/dL (9-23) Creatinine 7.90 mg/dL (0.700-1.30) Glomerular Filtration Rate Calc 8 mL/min (>90) BUN/Creatinine Ratio 7.2 (10.0-20.0) Serum Glucose 88 mg/dL (74-106) Calcium Level 9.4 mg/dL (8.7-10.4) Phosphorus Level 6.7 mg/dL (2.4-5.1) Magnesium Level 2.1 mg/dL (1.6-2.6) Iron Level 41 ug/dL (65-175) Total Iron Binding Capacity 236 ug/dL (250-425) Percent Iron Saturation 17.4 % (20-55) Ferritin 302.1 ng/mL (22-322) Total Bilirubin 0.2 mg/dL (0.2-1.0) Aspartate Amino Transferase (AST) 25 U/L (13-40) Alanine Aminotransferase (ALT) 50 U/L (7-40) Alkaline Phosphatase 62 U/L (46-116) Total Protein 6.1 g/dL (5.7-8.2) Albumin 3.9 g/dL (3.2-4.8) Prothrombin Time 10.8 sec (9.3-11.8) Prothrombin Time INR 1.02 (0.9-1.15) Activated Partial Thromboplast Time 29.9 SEC (24.5-34.5) Test 12/14/24 06:10 12/13/24 14:26 12/13/24 12:00 12/13/24 10:45 Hepatitis B Surface Antibody Negative (Negative) Renin Activity 9.2 ng/mL/hr (.) Aldosterone 30 ng/dL (.) Uric Acid 7.7 mg/dL (3.7-9.2) Creatine Kinase 49 U/L (46-171) Parathyroid Hormone (Intact) 650.2 pg/mL (18.4-80.1) Anti-Nuclear Antibody Screen Negative (Negative) Cytoplasmic ANCA (c-ANCA) Antibody <1:20 titer (Neg:<1:20) Anti-Proteinase 3 (c-ANCA) <0.2 units (0.0-0.9) Atypical p-ANCA <1:20 titer (Neg:<1:20) Perinuclear ANCA (p-ANCA) Antibody <1:20 titer (Neg:<1:20) Myeloperoxidase Antibody <0.2 units (0.0-0.9) Complement C3 141 mg/dL (82-167) Complement C4 36 mg/dL (12-38) Rapid Plasma Reagin Non reactive (Non Reactive) Hepatitis B Surface Antigen Negative (Negative) Hepatitis C Antibody Negative (Negative) HIV (1&2) Antibody Negative (Negative) Urine Color Colorless (Yellow) Urine Clarity Clear (Clear) Urine pH 5.5 (5.0-9.0) Urine Specific [place] 1.008 (1.001-1.035) Urine Protein 1+ (Negative) Urine Ketones Negative (Negative) Urine Blood Trace /uL (Negative) Urine Nitrite Negative (Negative) Urine Bilirubin Negative (Negative) Urine Urobilinogen Normal mg/dL (Negative) Urine Leukocyte Esterase Negative /uL (Negative) Urine RBC 1 /hpf (0 - 3) Urine Microscopic WBC < 1 /HPF (0-3) Urine Squamous Epithelial Cells None seen /hpf (<5) Urine Bacteria None seen /hpf (None Seen) Urine Creatinine 37.95 mg/dL (30.0-125.0) Urine Sodium 86 mmol/L (40-220) Urine Glucose Normal mg/dL (Normal) Urine Opiates Screen Neg (NEGATIVE) Urine Fentanyl Screen Neg (NEGATIVE) Urine Barbiturates Screen Neg (NEGATIVE) Urine Phencyclidine Screen Neg (NEGATIVE) Urine Amphetamines Screen Neg (NEGATIVE) Urine Benzodiazepines Screen Neg (NEGATIVE) Urine Cocaine Screen Neg (NEGATIVE) Urine Cannabinoids Screen Neg (NEGATIVE) Test 12/13/24 08:49 12/13/24 05:25 12/12/24 21:54 12/12/24 20:37 POC Glucose 109 mg/dl (70-106) Vitamin B12 Level 548 pg/mL (211-911) Vitamin D 25-Hydroxy 10.6 ng/mL (30.0-100) Free Thyroxine Index 3.5 (1.2-4.9) Thyroxine (T4) 8.4 ug/dL (4.5-12.0) Triiodothyronine (T3) Uptake 42 % (24-39) D-Dimer, Quantitative 0.92 mg/L FEU (0.0-0.49) Test 12/12/24 13:59 12/12/24 10:31 12/12/24 10:30 Troponin I High Sensitivity 306 ng/L (</=54) Influenza Type A Antigen Negative (Negative) Influenza Type B Antigen Negative (Negative) SARS-CoV-2 Antigen (Rapid) Negative (NEGATIVE) Hemoglobin A1c 4.9 % A1C (<5.7) B-Type Natriuretic Peptide 1132.68 pg/mL (0-100) Triglycerides Level 176 mg/dL (< 150) Cholesterol Level 193 mg/dL (< 200) LDL Cholesterol 117 mg/dL (< 100) HDL Cholesterol 51 mg/dL (40-59) Thyroid Stimulating Hormone (TSH) 0.37 uIU/mL (0.55-4.78) Other Laboratory Tests 12/20/24 06:26 Brief Hx & Hospital Course: Spike Torres is a 44-year-old male patient with PMH of hypertension on no medications, history of cocaine use, presented to the ER with a chief complaint of shortness of breaths for the past 2-3 weeks, associated with orthopnea, PND. Also associated with dry cough for the past 3 weeks. Denies chest pain/palpitations. He smokes marijuana daily, this cocaine for the past 5 years quit 2023, drinks occasionally. Has not seen a physician in years, has no PCP. During the hospitalization, EKG completed shows LVH criteria. Sinus tachycardia.TTE performed, EF 50% with severe MR. BNP 1132. Patient was diagnosed with systolic CHF exacerbation, head CT was unremarkable,Started nicardipine drip, target SBP between 140 and 150. Furosemide 40 mg IV b.i.d., Labetalol 400 mg p.o. q.12 was started, along with nifedipine 60 mg daily. Nephrology was consulted for PATRICIO on CKD, questionable ESRD. Patient was able to make urine. Renal ultrasound completed, shows Increased echogenicity of bilateral kidneys. Correlate for medical renal disease. IR placed tunneled cath 12/15 and patient started hemodialysis sessions 12/15, 12/17 and 12/20. Nephrology recommended kidney biopsy, IR was consulted and kidney biopsy completed 12/20. His blood pressure was adequately controlled. Cardiology recommended aggressive blood pressure control and diuresis as tolerated. The patient will benefit from a repeat transthoracic echocardiogram in the future to reassess mitral valve regurgitation once blood pressure is well controlled. Patient's hemodialysis chair time was arranged at [facility] and he was strongly advised to be there on . 12/20/2024 - patient is hemodynamically stable/clinically stable, has no active complaint, and therefore is being discharged home with the recommendation to follow up with the surgery dialysis, Nephrology, PCP, discharge clinic appointment. Discharge instructions: Patient discharged on furosemide 40 mg daily, nifedipine 30 mg daily, labetalol 400 mg b.i.d. atorvastatin 40 mg daily Follow up with [facility] 12/22 at 1400. Arrive to the [place] location 30 minutes early for paperwork. [facility] [address] [place] [address] Follow up with analytical strategist as outpatient Follow up with oracle financial application developer as outpatient within 7 days Follow up with primary care physician within 7 days Follow up with the discharge clinic appointment within 7 days Diagnosis: Sirs secondary to Hypertensive emergency Systolic congestive heart failure exacerbation - newly diagnosed Acute hypoxic respiratory failure secondary to above - resolved NSTEMI, likely type 2 PATRICIO on CKD, now ESRD requiring HD Secondary hyperparathyroidism Severe MR Anemia, likely secondary to ESRD Left Renal cyst Hyperlipidemia History of cocaine use - counseled regarding cessation for more than 22 minutes Hypokalemia Vitamin-D deficiency Consults/Reason for consult Nephrology Consulted for ESRD Cardiology consulted for elevated troponin Operations or Procedures ORDERING PHYSICIAN: FABIO BRANDT PROCEDURE(s): VQ - NM VQ SCAN REASON: PULMONARY EMBOLISM ORDER NUMBER(s): [id number], ACCESSION NUMBER(s): [id number] EXAM: NM NM VQ SCAN HISTORY: PULMONARY EMBOLISM COMPARISON: None TECHNIQUE: Following the administration of the ventilation agent, standard projections of the lungs were acquired. The same images were repeated after administration of the perfusion agent. Findings: Ventilation images demonstrate homogenous distribution of radiotracer throughout both lungs. Perfusion images demonstrate homogeneous distribution of radiotracer throughout both lungs. No peripheral wedge-shaped moderate or large subsegmental or segmental mismatched perfusion defects to suggest acute pulmonary embolism. Impression: 1. Based on PIOPED criteria, low probability for pulmonary embolism. ATED BY: FERNANDA ZUÑIGA DO DICTATED DATE/TIME: 12/13/24 160 SIGNED BY: FERNANDA ZUÑIGA DO SIGNED DATE/TIME: 02/11/25 1606 CC: ORDERING PHYSICIAN: FABIO BRANDTCNP PROCEDURE(s): KIDUS - KIDNEY REASON: renal failure ORDER NUMBER(s): [id number], ACCESSION NUMBER(s): [id number] EXAM: US KIDNEY INDICATION: renal failure TECHNIQUE: Multiple real-time sonographic images of the kidneys and bladder were obtained. COMPARISON: None Findings: Right kidney measures 10.0 cm with normal contours, increased echotexture, and normal cortical thickness. No evidence of hydronephrosis, calculi, cystic or solid lesions. Left kidney measures 9.8 cm with normal contours, increasead echotexture, and normal cortical thickness. 0.8 x 1.1 x 0.8 cm anechoic lesion. No evidence of hydronephrosis, calculi, or solid lesions. Urinary bladder is contracted. Bilateral pleural effusions. Impression: 1. Increased echogenicity of bilateral kidneys. Correlate for medical renal disease. 2. Left renal cyst. 3. Urinary bladder is contracted. 4. Bilateral pleural effusions. ATED BY: FERNANDA ZUÑIGA DO DICTATED DATE/TIME: 12/12/242038 SIGNED BY: FERNANDA ZUÑIGA DO SIGNED DATE/TIME: 12/12/242038 CC: ORDERING PHYSICIAN: FABIO BRANDTCNRenuka PROCEDURE(s): CTH - STROKE CTH REASON: hyprtension, headache ORDER NUMBER(s): [id number], ACCESSION NUMBER(s): [id number] CT STROKE CTH INDICATION: hyprtension, headache COMPARISON: None TECHNIQUE: CT of the head without intravenous contrast. RADIATION DOSE: CTDIvol: mGy, DLP: mGy*cm FINDINGS: There is no evidence of intracranial hemorrhage, acute infarct, extra-axial collection, mass effect, midline shift, herniation or hydrocephalus. There is old right PICA territory cerebellar infarct as well as small old infarcts in bilateral thalamus larger on the right side and left posterior and left frontal periventricular white matter. The ventricles, sulci and cisterns are normal. Visualized paranasal sinuses and mastoid air cells are clear. The surrounding soft tissues and osseous structures are unremarkable. IMPRESSION: No acute intracranial abnormality identified. 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 ATED BY: DUANE SAMSON MD DICTATED DATE/TIME: 12/12/241954 SIGNED BY: DUANE SAMSON MD SIGNED DATE/TIME: 12/12/241954 CC: Condition at Discharge: Stable Final Diagnosis/Problems List Sirs secondary to Hypertensive emergency Systolic congestive heart failure exacerbation - newly diagnosed Acute hypoxic respiratory failure secondary to above - resolved NSTEMI, likely type 2 PATRICIO on CKD, now ESRD requiring HD Secondary hyperparathyroidism Severe MR Anemia, likely secondary to ESRD Left Renal cyst Hyperlipidemia History of cocaine use - counseled regarding cessation for more than 22 minutes Hypokalemia Vitamin-D deficiency Discharge Disposition: Home After hemodialysis session Discharge Instruct/Medications Diet: Renal Activity: No Restrictions, As Tolerated Follow Up/Referral: Follow up with [facility] 12/22 at 1400. Arrive to the [facility] location 30 minutes early for paperwork. [facility] [address] [place] [address] Follow up with analytical strategist as outpatient Follow up with primary care physician within 7 days Follow up with the discharge clinic appointment within 7 days Medications: Per EMR Discharge Statement: "Patient was advised to return to the ER or call 911 if any headaches, dizziness, shortness of breath, chest pain, abdominal pain, bleeding, fevers, or worsening of medical condition. Patient was counseled about treatment plan, medications, possible side effects, patientverbalized understanding. All questions were answered to the best of my ability. This discharge took greater then 30 minutes in planning, reviewing documentation, counseling the patient, and discussing with other team members." ASSESSMENT ASSESSMENT Assessment Sirs secondary to Hypertensive emergency Systolic congestive heart failure exacerbation - newly diagnosed Acute hypoxic respiratory failure secondary to above - resolved NSTEMI, likely type 2 PATRICIO on CKD, now ESRD req HD Secondary hyperparathyroidism Left Renal cyst Severe MR History of cocaine use NORMAN CHAO RESIDENT Dec 20, 2024 16:18
[2024-12-20] MEDS ORDERED: FURO40TA4 PO ×2 (16:24→17:42)
[2024-12-20] MEDS ORDERED: NIFE1TAB31 PO (16:24)
[2024-12-20] MEDS ORDERED: LABE200T10 PO ×2 (16:24→17:43)
[2024-12-20] MEDS ORDERED: ATOR40TA52 PO ×2 (16:24→17:41)
[2024-12-20] MEDS ORDERED: ERGO1CAP23 PO (16:24)
[2024-12-20] MEDS ORDERED: NIFE1TAB36 PO (17:43)
[2024-12-20] MEDS ORDERED: CHOL20007 PO (17:44)
--- NOTE | 2024-12-20 17:55 | DVHPN2 ---
Progress Note Date Seen: Dec 20, 2024 Medical Necessity Reason Pt with a Central, PICC or Fol: No Subjective Patient reports: No new complaints Review of Systems: HEENT:Normal, CVS:Normal, RESPIRATORY:Normal, GI:Normal, :Normal, MSK:Normal, NEURO:Normal Objective vital signs Vital Sign Date Time Temp Pulse Resp B/P (MAP) Pulse Ox O2 Delivery O2 Flow Rate FiO2 12/20/24 17:05 36.3 78 12/20/24 17:00 18 122/89 (100) 96 12/20/24 08:00 Room Air* 0 21 Total Intake and Output 12/19/24 12/19/24 12/20/24 15:00 23:00 07:00 Intake Total 800 ml Balance 800 ml medications Current Medications Medications Dose Ordered Sig/Clara Route Start Time Stop Time Status Last Admin Dose Admin Nitroglycerin 0.4 mg Q5MINP PRN SL 12/12/24 19:15 Morphine Sulfate 2 mg Q30M PRN IV 12/12/24 19:15 Ondansetron HCl 4 mg Q4HP PRN IV 12/12/24 19:45 Acetaminophen 650 mg Q6HP PRN PO 12/12/24 19:45 Furosemide 40 mg BIDD IV 12/13/24 14:00 12/20/24 05:30 40 MG Labetalol HCl 400 mg Q12HR PO 12/13/24 15:30 12/19/24 21:09 400 MG Atorvastatin Calcium 40 mg HS PO 12/13/24 22:00 12/19/24 21:08 40 MG Polyethylene Glycol 17 gm DAILYPRN PRN PO 12/14/24 12:45 Ergocalciferol 50,000 unit Q7D PO 12/14/24 16:00 12/14/24 17:57 50,000 UNIT Sevelamer HCl 2,400 mg TIDWM PO 12/15/24 12:00 12/19/24 18:00 2,400 MG Multivit/Ca Carb/ B Cmplx/FA/Prenat 1 tab DAILY PO 12/16/24 10:00 12/18/24 10:47 1 TAB Nifedipine 60 mg DAILY PO 12/16/24 10:00 12/18/24 10:46 60 MG Epoetin Yariel-epbx 10,000 unit MWF@2100 OK 12/19/24 21:00 12/19/24 21:10 10,000 UNIT laboratory and microbiology Laboratory Tests 12/20/24 06:26 Test 12/20/24 06:26 Range/Units Serum Glucose 88 74-106 mg/dL Microbiology Date/Time Source Procedure Growth Status 12/14/24 17:17 Nose MRSA Screen - Final Complete Problem List/Assessment/Plan Problem List/Assessment/Plan Acute kidney injury requiring dialysis Ckd baseline unknown based on records Hypertensive urgency, improved NSTEMI Congestive heart failure, Diastolic dysfunction Anemia of chronic kidney disease Secondary hyperparathyroidism Vitamin-D deficiency s/p kidney biopsy 12/20--outpt pathology results follow up HD today Continue strict I&Os epogen Sub Q MWF Renvela 2400 mg p.o. t.i.d. with meals Ergocalciferol 70377 units p.o. q.week Renal diet Social service for outpatient hemodialysis chair time-pending Plan discussed with: Patient Dietary Evaluation Review Comments: 1) Resume renal standard diet when medically feasible 2) Encourage compliance of renal diet, including taking phosphorus binder as directed 3) f/u with outpatient renal RD 4) f/u with outpatient insecticide mixer Expected Outcomes/Goals: 1) appetite and labs to improve 2) f/u in 3-5 days KIMMY SILVEIRA MD Dec 20, 2024 17:55
== END 2024-12-20 19:45 | disposition home or self-care (01) | DRG 673 ==
LOC: ER 09:41 → TELE 19:10 → OVERFLOW 12-13 16:12 → TELE-EAST 12-15 09:20 → EAST 12-16 17:16
PROVIDERS: ADMIT Student in an Organized Health Care Education/Training Program; ATTEND Internal Medicine Nephrology
PROC: 0JH63XZ Insertion of Tunneled Vascular Access Device into Chest Subcutaneous Tissue and Fascia, Percutaneous Approach (ICD-10-PCS; principal; 2024-12-15)
PROC: 02HV33Z Insertion of Infusion Device into Superior Vena Cava, Percutaneous Approach (ICD-10-PCS; 2024-12-15)
PROC: B548ZZA Ultrasonography of Superior Vena Cava, Guidance (ICD-10-PCS; 2024-12-15)
PROC: B5181ZA Fluoroscopy of Superior Vena Cava using Low Osmolar Contrast, Guidance (ICD-10-PCS; 2024-12-15)
PROC: 5A1D70Z Performance of Urinary Filtration, Intermittent, Less than 6 Hours Per Day (ICD-10-PCS; 2024-12-15)
PROC: 5A1D70Z Performance of Urinary Filtration, Intermittent, Less than 6 Hours Per Day (ICD-10-PCS; 2024-12-16)
PROC: 5A1D70Z Performance of Urinary Filtration, Intermittent, Less than 6 Hours Per Day (ICD-10-PCS; 2024-12-17)
PROC: 5A1D70Z Performance of Urinary Filtration, Intermittent, Less than 6 Hours Per Day (ICD-10-PCS; 2024-12-20)
DX: N17.9 Acute kidney failure, unspecified (principal); I21.A1 Myocardial infarction type 2; I50.23 Acute on chronic systolic (congestive) heart failure; J96.01 Acute respiratory failure with hypoxia; R65.10 Systemic inflammatory response syndrome (SIRS) of non-infectious origin without acute organ dysfunction; I16.1 Hypertensive emergency; I13.2 Hypertensive heart and chronic kidney disease with heart failure and with stage 5 chronic kidney disease, or end stage renal disease; N18.6 End stage renal disease; Z20.822 Contact with and (suspected) exposure to COVID-19; D63.1 Anemia in chronic kidney disease; E87.6 Hypokalemia; I34.0 Nonrheumatic mitral (valve) insufficiency; E07.81 Sick-euthyroid syndrome; E55.9 Vitamin D deficiency, unspecified; N28.1 Cyst of kidney, acquired; F14.10 Cocaine abuse, uncomplicated; E11.22 Type 2 diabetes mellitus with diabetic chronic kidney disease; E26.9 Hyperaldosteronism, unspecified; E21.1 Secondary hyperparathyroidism, not elsewhere classified; Z86.73 Personal history of transient ischemic attack (TIA), and cerebral infarction without residual deficits; Z91.199 Patient's noncompliance with other medical treatment and regimen due to unspecified reason; Z83.3 Family history of diabetes mellitus; Z91.148 Patient's other noncompliance with medication regimen for other reason
CPT/HCPCS: 36415; 36558; 70450; 71045; 76775; 76937; 76942; 77001; 78582; 80048; 80053; 80061; 80307; 81001; 82088; 82306; 82550; 82570; 82607; 82728; 82962; 83036; 83520; 83540; 83550; 83735; 83880; 83970; 84100; 84244; 84300; 84443; 84484; 84550; 85025; 85379; 85610; 85730; 86038; 86160; 86256; 86592; 86703; 86706; 86803; 87081; 87340; 87426; 87804; 90935; 93005; 93306; 99152; 99291; C1894; G0378; J1642; J2250; J2405; J3480

== ENCOUNTER → 2025-01-02 | Outpatient (CLI) | payer OTHER ==
[~2025-01-02] MED LIST: ATOR40TA52 PO; CHOL20007 PO; FURO40TA4 PO; LABE200T10 PO; NIFE1TAB36 PO
[2025-01-02 08:15] LABS: Urine Bacteria None Seen /hpf (None Seen)
[2025-01-02 08:28] LABS: Basophils # (auto) 0.1 10 ^3/uL (0-0.2); Eosinophils # (auto) 0.2 10 ^3/uL (0-0.8); Eosinophils % (auto) 3.8 % (0.0-7.0); Hematocrit 30.2 % (41.0-53.0); Hemoglobin 10.1 g/dL (13.5-17.5); Lymphocytes % (auto) 17.9 % (10.0-50.0); Mean Corpuscular Hemoglobin 28.8 pg (28.0-32.0); Mean Corpuscular Hgb Conc. 33.4 g/dL (32.0-36.0); Mean Corpuscular Volume 86.2 fL (80.0-100.0); Monocytes # (auto) 0.3 10 ^3/uL (0-1.3); Monocytes % (auto) 5.9 % (0.0-12.0); Neutrophils # (auto) 3.9 10 ^3/uL (1.6-8.6); Neutrophils % (auto) 71.4 % (37.0-80.0); Platelet Count (auto) 211 10^3/uL (140-450); Red Cell Distribution Width 15.2 % (11.8-14.3); White Blood Cell 5.4 10^3/uL (4.4-10.8)
[2025-01-02 09:07] LABS: Urine Blood Negative /uL (Negative); Urine Clarity Clear (Clear); Urine Color Colorless (Yellow); Urine Protein, UAD 1+ (Negative); Urine Squamous Epithelial Cell None Seen /hpf (<5); Urine Urobilinogen Normal (Negative); Urine WBC 1 /HPF (0-3)
[2025-01-02 09:09] LABS: Alanine Aminotransferase 19 U/L (7-40); Albumin 4.7 g/dL (3.2-4.8); Alkaline Phosphatase 69 U/L (46-116); Calcium 9.6 mg/dL (8.7-10.4); Carbon Dioxide 22 mmol/L (20-31); Chloride 103 mmol/L (98-107); Glucose 93 mg/dL (74-106); Potassium 4.4 mmol/L (3.5-5.1); Triglycerides 102 mg/dL (< 150)
[2025-01-02 09:10] LABS: Anion Gap 15 (5-15); BUN/Creatinine Ratio 9.1 (10.0-20.0); Bilirubin, Total 0.3 mg/dL (0.2-1.0); Cholesterol 146 mg/dL (< 200); HDL Cholesterol 49 mg/dL (40-59); LDL Cholesterol 73 mg/dL (< 100); Sodium 140 mmol/L (136-145); Total Protein 7.5 g/dL (5.7-8.2)
[2025-01-02 09:17] LABS: Aspartate Aminotransferase < 8 U/L (13-40); Blood Urea Nitrogen 59 mg/dL (9-23)
== END | disposition home or self-care (01) ==
LOC: LAB 07:57
PROVIDERS: ATTEND Internal Medicine
DX: E55.9 Vitamin D deficiency, unspecified (principal); Z00.01 Encounter for general adult medical examination with abnormal findings
CPT/HCPCS: 36415; 80053; 80061; 81001; 82043; 82306; 83036; 84439; 84443; 85025